=== PATIENT | female | born 1990 | race Caucasian/White ===

== ENCOUNTER 2017-10-16 16:08 | Emergency (ER) | payer MEDICAID, OTHER ==
[2017-10-16] MEDS ORDERED: traMADol TAB* 50 MG PO ONE (17:36)
[2017-10-16 17:46] VITALS: BP 126/74
--- NOTE | 2017-10-17 07:49 | ED ---
Throat Pain/Nasal Congestion - HPI Summary HPI Summary: Patient is a 27-year-old female presenting to the ED with right-sided dental pain 2 days. She endorses pain to the upper and lower tooth over #6 and #28. She has had extensive work done on her teeth in the past with several fillings and root canals. Endorses a past history of dental infections. She endorses pain which is intermittent and worse with eating over the past 2 days. She is tearful on arrival. She has been taking ibuprofen and Tylenol with minimal relief. Also has been taking Anbesol. Denies any swelling. - History of Current Complaint Chief Complaint: EDDentalPain Time Seen by Provider: 10/16/17 16:39 Hx Obtained From: Patient Onset/Duration: Sudden Onset Severity: Moderate Associated Signs And Symptoms: Negative: Dysphagia, Drooling, Wheezing, Sinus Discomfort, Nasal Discharge - Epiglottits Risk Factors Epiglottis Risk Factors: Negative - Allergies/Home Medications Allergies/Adverse Reactions: Allergies Allergy/AdvReac Type Severity Reaction Status Date / Time amoxicillin Allergy Hives/Diff. Verified 10/16/17 16:43 Breathing/I tching clarithromycin Allergy Nausea And Verified 10/16/17 16:43 Vomiting codeine Allergy Hives Verified 10/16/17 16:43 Penicillins Allergy Hives/Diff. Verified 10/16/17 16:43 Breathing/I tching PMH/Surg Hx/FS Hx/Imm Hx Previously Healthy: Yes Endocrine/Hematology History: Reports: Hx Unexplained Bleeding - PT HAS IRREG. BLEEDING SINCE CHILDBIRTH-QOD - improved since nexplanon Denies: Hx Anticoagulant Therapy, Hx Blood Disorders, Hx Blood Transfusions, Hx Bone Marrow Disease, Hx Diabetes, Hx Systemic Lupus Erythematosus, Hx Sickle Cell Disease, Hx Thyroid Disease, Hx Anemia, Other Endocrine/Hematological Disorders Cardiovascular History: Denies: Hx Hypertension Respiratory History: Reports: Hx Asthma - Uses Albuterol MDI PRN, last use "a long time ago" Denies: Hx Chronic Obstructive Pulmonary Disease (COPD), Other Respiratory Problems/Disorders GI History: Denies: Hx Ulcer, Other GI Disorders Sensory History: Denies: Hx Cataracts, Hx Contacts or Glasses, Hx Eye Injury, Hx Eye Prosthesis, Hx Glaucoma, Hx Macular Degeneration, Hx Vision Problem, Hx Deafness , Hx Hearing Aid, Hx Hearing Problem, Other Sensory Impairments Opthamlomology History: Denies: Hx Cataracts, Hx Contacts or Glasses, Hx Eye Injury, Hx Eye Prosthesis, Hx Glaucoma, Hx Macular Degeneration, Hx Vision Problem, Other Sensory Impairments Neurological History: Reports: Hx Headaches, Other Neuro Impairments/Disorders - PT REPORTS SHE HAS YET TO 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 Psychiatric History: Reports: Hx Anxiety, Hx Depression - bipolar disorder on Zoloft, Hx Post Traumatic Stress Disorder, Hx Inpatient Treatment, Hx Community Mental Health Tx - [facility] - [facility], Hx Bipolar Disorder Denies: Hx Attention Deficit Hyperactivity Disorder, Hx Eating Disorder, Hx Panic Disorder, Hx Schizophrenia, Hx Suicide Attempt, Hx of Violent Episodes Against Others, Hx Substance Abuse, Other Psychiatric Issues/Disorders - Immunization History Immunizations Up to Date: Yes Infectious Disease History: No Infectious Disease History: Reports: Hx of Known/Suspected MRSA - buttocks, Hx Shingles Denies: Hx Hepatitis, Hx Human Immunodeficiency Virus (HIV), History Other Infectious Disease, Traveled Outside the [place] in Last 30 Days - Family History Known Family History: Positive: Other - Positive for bipolar disorder, depression Negative: Hypertension - Social History Occupation: Employed Full-time Lives: With Family Alcohol Use: None Hx Substance Use: No Substance Use Type: Reports: None Hx Tobacco Use: No Smoking Status (MU): Never Smoked Tobacco Type: Cigarettes Have You Smoked in the Last Year: No Review of Systems Constitutional: Negative Negative: Fever, Chills, Fatigue, Skin Diaphoresis Positive: Dental Pain Negative: Palpitations, Chest Pain Negative: Shortness Of Breath, Cough Genitourinary: Negative Positive: no symptoms reported, see HPI Negative: Arthralgia, Myalgia Skin: Negative Neurological: Negative All Other Systems Reviewed And Are Negative: Yes Physical Exam Triage Information Reviewed: Yes Vital Signs On Initial Exam: Initial Vitals Temp Pulse Resp BP Pulse Ox 97.0 F 75 16 126/84 97 10/16/17 16:10 10/16/17 16:10 10/16/17 16:10 10/16/17 16:10 10/16/17 16:10 Vital Signs Reviewed: Yes Appearance: Positive: Well-Appearing, Well-Nourished Skin: Positive: Warm - all, Skin Color Reflects Adequate Perfusion Head/Face: Positive: Normal Head/Face Inspection Eyes: Positive: EOMI, JANELL, Conjunctiva Clear Dental: Positive: Percussion Tenderness @ - #6 and #28 tooth pain, Gross Decay/ Caries @ Respiratory/Lung Sounds: Positive: Clear to Auscultation, Breath Sounds Present Cardiovascular: Positive: RRR, Pulses are Symmetrical in both Upper and Lower Extremities Musculoskeletal: Positive: Normal, Strength/ROM Intact Neurological: Positive: Speech Normal Psychiatric: Positive: Normal, Affect/Mood Appropriate AVPU Assessment: Alert Diagnostics - Vital Signs Vital Signs Temp Pulse Resp BP Pulse Ox 10/16/17 17:45 98.1 F 73 16 126/74 99 10/16/17 16:10 97.0 F 75 16 126/84 97 - Laboratory Lab Statement: Any lab studies that have been ordered have been reviewed, and results considered in the medical decision making process. EENT Course/Dx - Course Course Of Treatment: Physical examination, there is no obvious signs of abscess. No erythema or drainage. Pain on light palpation to the right maxillary sinus over tooth #6, no pain on palpation to the lower chin. She has several fillings, dental caries and gingivitis throughout. She has not seen a dentist in several years, however will follow-up next week. She is given clindamycin as she is allergic to penicillin for a possible dental infection. She understands return cautions will follow-up with her dentist. She is given tramadol 50 mg in the ED and is encouraged ibuprofen and Anbesol at home. - Differential Diagnoses Differential Diagnoses: Dental Caries - Diagnoses Provider Diagnoses: Pain, dental Discharge - Sign-Out/Discharge Documenting (check all that apply): Patient Departure - Discharge Plan Condition: Stable Disposition: HOME Prescriptions: Clindamycin Cap(NF) [Clindamycin Cap 300 mg Cap(NF)] 300 mg PO Q6H #20 cap Patient Education Materials: Toothache (ED) Referrals: Paco Duran MD [Primary Care Provider] - Additional Instructions: Ibuprofen 800 mg 3 times daily Continue with Anbesol Clindamycin 4 times daily 5 days Please follow-up with dentist as soon as possible - Billing Disposition and Condition Condition: STABLE Disposition: Home
== END 2017-10-16 17:45 | disposition home or self-care (01) ==
LOC: ED 16:08
DX: K08.89 Other specified disorders of teeth and supporting structures (principal); K02.9 Dental caries, unspecified; K05.10 Chronic gingivitis, plaque induced; Z88.3 Allergy status to other anti-infective agents; Z88.5 Allergy status to narcotic agent; Z88.0 Allergy status to penicillin
CPT/HCPCS: 99282; A9270-GY

== ENCOUNTER → 2017-12-16 08:52 | Emergency (ER) | payer MEDICAID ==
[~2017-12-16 08:52] MED LIST: Dexamethasone TAB* 4 MG PO ONE; Magic Mouth Was-BEN/MAAL/LIDO SWISH SWAL ONE; Naproxen TAB* 250 MG PO ONE
--- OUTSIDE RECORDS SUMMARY | 2017-12-16 09:40 | XMS REPORT | Continuity of Care Document ---
:1990 External Reference #:[id number] Author Name Ty Gonzalez MD Address [address] [place] [address] Care Team Providers Name Role Phone [facility] Primary Care Physician Unavailable Payers Type Date Identification Numbers Payment Provider Subscriber Effective: Policy Number: [id number] [facility] Brianne Adames 2010 PayID: [id number] [address] [address] [place] [address] Expires: 2010 Policy Number: [id number] Medicaid Mom's Brianne Adames PayID: [id number] [address] [place] [address] Advance Directives Description No Information Available Problems Date Description Provider Status Onset: 04/20/2014 Bipolar disorder Ashlyn Ramirez NP Active Onset: 09/29/2011 Asthma without status asthmaticus Tory Solorio CNM Resolved Resolved: 01/16/2015 Onset: 09/29/2011 Depressive disorder Tory Solorio CNM Resolved Resolved: 01/16/2015 Onset: 09/29/2011 Anxiety state Tory Solorio CNM Resolved Resolved: 01/16/2015 Onset: 04/20/2014 Multigravida Ashlyn Ramirez NP Resolved Resolved: 01/16/2015 Family History Date Family Member(s) Problem(s) Comments Father Heart Disease Father Diabetes Mother Depression Mother Diabetes Mother Epilepsy Mother Asthma Mother Bipolar Disorder Number of Children 4 First Son A&W First Daughter A&W Second Daughter A&W Third Daughter A&W Number of Siblings Siblings: 4 First Brother A&W Second Brother A&W First Sister A&W Second Sister Unknown Paternal Grandfather Unknown Paternal Grandmother due to Lung Cancer () Maternal Grandfather Unknown Maternal Grandmother Unknown Social History Type Date Description Comments Sex Unknown Education Highest level of education completed is 9th grade Marital Status Patient is Living Situation Lives with son and daughters Occupation Homemaker Cigarette Use Never smoked cigarettes Alcohol Currently consumes alcohol Tobacco Use Start: Unknown Patient has never smoked Drug Use Denies drug use Smoking Status Reviewed: 12/13/17 Patient has never smoked Daily Caffeine Does not consume caffeine Exercise Type/Frequency Exercises regularly Current Seat Belt/Car Seat Always uses a seat belt Currently Active The patient is currently sexually active Contraceptive Methods Nexplanon STD's Has chlamydia RICKEY: 01/01/2012 Estimated Date of Based on LMP Delivery Allergies, Adverse Reactions, Alerts Date Description Reaction Status Severity Comments 09/25/2009 Penicillin Active 10/19/2012 Amoxicillin Active Medications Medication Date Status Form Strength Qnty SIG Indications Ordering Provider Nexplanon 12/13 Active Implant 68mg Phaelon /2017 MD Lisa Zoloft Active Tablets 200mg 30tab 1 by mouth Unknown /0000 s every day Nexplanon 01/16 Hx Implant 68mg Marvin A. /2014 Bria Martinez M.D. 11/24 Terazol 3 08/22 Hx Cream 0.8% 1tube use 1 applicator Liane - every night at , CNM 01/15 bedtime x nights Norgestim-Eth 12/21 Hx Tablets 0.18/0.21 28tab 1 by mouth Dvora Estrad 5/0.25 s every day Justin, Triphasic - mg-35 mcg M.DFrancisco J 04/20 Depo-Provera 07/26 Hx Suspension 150mg/ml 1unit 1 V25.49 Francia /2013 s intramuscular Jump, - every 3months ANP-C 02/20 One 07/26 Hx Tablets 27-0.8mg 90tab 1 by mouth V24.2 Francia Daily Opr s every day Jump, Generic - ANP-C Covered By 09/18 Ins. Sertraline 06/01 Hx Tablets 50mg 30tab take 02/16 Loly HCL s tablet daily Cam, - for first M 04/20 week, then tablet by mouth daily Keflex 02/16 Hx Capsules 500mg 28cap take 2 caps po s bid x 7 days Tyler, - [facility] 04/17 Macrobid 01/16 Hx Capsules 100mg 14cap take 1 po bid Cadence s x 7 days. Neil - finish rx 01/30 Terconazole 01/10 Hx Cream 0.8% 20g use 1 vaginal applicator qhs Neli - x 3 days 01/15 Claritin 11/11 Hx Tablets 5mg 30tab Take 1 PO bid [facility] Dispers s Bria Trejo MD 01/09 Zofran Odt 11/11 Hx Tablets 4mg 30tab take 1 sl q8 Dispers s prn nausea Bria Trejo MD 01/09 Tylenol 11/01 Hx Tablets 325mg 30tab Take 1-2 PO Cadence s prn Headache Bria Trejo MD 09/24 Plus 10/19 Hx Tablets 7-0.4-100 90tab 1 po qd [place] Dha mg s please use any Bria Trejo generic 07/26 vitamin covered by ins. with dha 100-300 mg. thanks Estradiol 04/19 Hx Tablets 0.5mg 30tab 1 po qd Marvin AFrancisco J s Bria Martinez M.D. 10/18 Ibuprofen 03/03 Hx Tablets 600mg 30tab take 1 po q6 x Marvin AFrancisco J s 48 hrs Bria Martinez M.D. 10/18 Dha 09/28 Hx Capsules 300mg 100ca 1 daily by Loly ps mouth Tutu, - [facility] 03/01 Calcium 600 09/28 Hx Tablets 600mg 100ta 1 po twice a day Tutu, - [facility] 10/18 Diflucan 09/28 Hx Tablets 150mg 2tabs 1 by mouth, Loly repeat in 72 Cam, - hrs if [facility] 11/03 symptoms resolved Haloperidol 12/16 Hx Tablets 1mg #2 po at hs Cadence Polina Centeno, - CNM 09/28 /Foli 09/25 Hx Tablets 90tab 1 po qd Cadence c /2009 s Polina Centeno, - CNM 10/05 Benadryl Hx Unknown /0000 - 09/25 Medications Administered in Office Medication Date Status Form Strength Qnty SIG Indications Ordering Provider Depo Provera 07/26 Administered Injection Francia /2013 TRACY Linda-C Injection 03/03 Administered Injection Ashlyn Medroxyprogesteron /2012 YOGI Ramirez e Acetate /Depo Provera/Contracept ion Immunizations CPT Code Status Date Vaccine Lot # [id number] Given 01/27/2013 Influenza Virus Vaccine Split Virus Use For Individual 3Yr Older [id number] Given 01/17/2010 Influenza Virus Vaccine 3Years Or Older Vital Signs Date Vital Result Comment 12/13/2017 2:03pm BP Systolic 122 mmHg BP Diastolic 82 mmHg Height 64.5 inches 5'4.50" Weight 249.00 lb BMI (Body Mass Index) 42.1 kg/m2 Last Menstrual Period 8059510 4 Parity 4 04/03/2015 1:20pm BP Systolic 122 mmHg BP Diastolic 66 mmHg Height 64 inches 5'4" Weight 185.00 lb BMI (Body Mass Index) 31.8 kg/m2 4 Parity 4 01/16/2015 1:33pm BP Systolic 116 mmHg BP Diastolic 66 mmHg Height 64 inches 5'4" Weight 178.00 lb BMI (Body Mass Index) 30.6 kg/m2 Last Menstrual Period 4720442 4 Parity 4 12/13/2014 12:35pm BP Systolic 104 mmHg BP Diastolic 62 mmHg Height 64 inches 5'4" Weight 176.00 lb BMI (Body Mass Index) 30.2 kg/m2 Last Menstrual Period 9792500 4 Parity 4 04/20/2014 10:59am BP Systolic 104 mmHg BP Diastolic 68 mmHg Height 64 inches 5'4" Weight 168.00 lb BMI (Body Mass Index) 28.8 kg/m2 Last Menstrual Period 1076622 4 Parity 3 12/21/2013 8:35am BP Systolic 116 mmHg BP Diastolic 82 mmHg Height 64 inches 5'4" Weight 176.00 lb BMI (Body Mass Index) 30.2 kg/m2 Last Menstrual Period 8943791 09/27/2013 1:55pm BP Systolic 122 mmHg BP Diastolic 76 mmHg Height 64 inches 5'4" Weight 172.00 lb BMI (Body Mass Index) 29.5 kg/m2 3 Parity 3 07/26/2013 12:41pm BP Systolic 122 mmHg BP Diastolic 80 mmHg Height 64 inches 5'4" Weight 176.00 lb BMI (Body Mass Index) 30.2 kg/m2 Last Menstrual Period 3854305 3 Parity 3 10/19/2012 10:02am BP Systolic 104 mmHg BP Diastolic 66 mmHg Height 64 inches 5'4" Weight 170.00 lb BMI (Body Mass Index) 29.2 kg/m2 3 Parity 2 03/03/2012 10:24am BP Systolic 120 mmHg BP Diastolic 80 mmHg Height 64 inches 5'4" Weight 171.00 lb BMI (Body Mass Index) 29.3 kg/m2 Last Menstrual Period 2471229 2 Parity 2 02/23/2012 1:03pm BP Systolic 100 mmHg BP Diastolic 64 mmHg Height 64 inches 5'4" Weight 171.00 lb BMI (Body Mass Index) 29.3 kg/m2 02/03/2012 10:39am BP Systolic 108 mmHg BP Diastolic 68 mmHg Height 64 inches 5'4" Weight 179.00 lb BMI (Body Mass Index) 30.7 kg/m2 Last Menstrual Period 7891794 del 01/25/12 2 Parity 2 09/29/2011 1:39pm BP Systolic 102 mmHg BP Diastolic 60 mmHg Height 64 inches 5'4" Weight 166.00 lb BMI (Body Mass Index) 28.5 kg/m2 Last Menstrual Period 4083348 2 Parity 1 05/27/2010 1:59pm BP Systolic 118 mmHg BP Diastolic 70 mmHg Weight 190.00 lb 09/25/2009 1:10pm BP Systolic 98 mmHg BP Diastolic 60 mmHg Height 64 inches 5'4" Weight 170.00 lb BMI (Body Mass Index) 29.2 kg/m2 Last Menstrual Period July 0 Results Test Date Facility Test Result H/L Range Note Laboratory test 10/18/2014 [facility] Amnisure No Membrane [address] [place] [address] Rupt <SEE [phone] NOTE> Laboratory test 09/27/2014 [facility] Genital For SEE RESULT 2 [place] [address] GRP B Strep BELOW [phone] Only Urinalysis 09/20/2014 [facility] [place] [address] [phone] Urine Appearance Cloudy Urine Specific [place] 1.021 1.010-1.030 Urine pH 6.0 5-9 Urine Urobilinogen Negative Negative Urine Ketones Negative Negative Urine Protein Negative Negative Urine Leukocytes Negative Negative Urine Blood Negative Negative Urine Nitrite Negative Negative Urine Bilirubin Negative Negative Urine Glucose Negative Negative Laboratory test 08/22/2014 [facility] Gardnerella/Yeast: SEE RESULT [address] [place] [address] Vaginal Dna BELOW [phone] Trichomonas: Vaginal Dna Probe SEE RESULT BELOW 4 Laboratory test 08/01/2014 [facility] Glucose 1 HR 94 mg/dL 70-160 [place] [address] Post Prandial [phone] CBC With No Diff 08/01/2014 [facility] White Blood 14.2 High 4.8-10.8 [place] [address] Count 10^3/uL [phone] Red Blood Count 4.18 10^6/uL 4.0-5.4 Hemoglobin 11.2 g/dL Low 12.0-16.0 Hematocrit 36 % 35-47 Mean Corpuscular Volume 85 fL 80-97 Mean Corpuscular Hemoglobin 27 pg 27-31 Mean Corpuscular HGB Conc 31 g/dL 31-36 Red Cell Distribution Width 15 % 10.5-15 Platelet Count 227 10^3/uL 150-450 Mean Platelet Volume 7 um3 Low 7.4-10.4 PNL No 06/14/2014 [facility] Rubella Screen Immune IU/ mL Immune 5 Urine [place], [place] [address]67179 [phone] Hemoglobin A1c 4.7 % Less than 6.0 6 Hepatitis B Surface Antigen Nonreactive Nonreactive 7 RPR 06/14/2014 [facility] Syphilis IgG TNP Nonreactive [place], [place] [address] [phone] RPR Nonreactive Nonreactive RPR Titer TNP Pediatric/Maternal YES CBC With No 06/14/2014 [facility] White Blood 8.1 10^3/uL 4.8 -10.8 [place] [address] Count [phone] Red Blood Count 4.17 10^6/uL 4.0-5.4 Hemoglobin 11.8 g/dL Low 12.0-16.0 Hematocrit 36 % 35-47 Mean Corpuscular Volume 85 fL 80-97 Mean Corpuscular Hemoglobin 28 pg 27-31 Mean Corpuscular HGB Conc 33 g/dL 31-36 Red Cell Distribution Width 14 % 10.5-15 Platelet Count 222 10^3/uL 150-450 Mean Platelet Volume 7 um3 Low 7.4-10.4 Type And Screen 06/14/2014 [facility] [place] [address] Type [phone] Antibody Screen NEGATIVE HIV 1/2 AB 06/14/2014 [facility] HIV 1 2 Nonreactive Nonreactive 8 [place] [address] Antibody [phone] GC/Chlamydia 04/20/2014 [facility] Chlamydia Negative [place] [address] trachomatis [phone] Rna Neisseria gonorrhoeae (GC) Rna Negative Negative 9 Urine Culture And 04/20/2014 [facility] Urine Culture (SEE NOTE ) 10 [place] [address] [phone] Laboratory test 12/21/2013 [facility] Beta HCG < 0.60 0.0-5 11 [place] [address] Quantitative IU/mL .0 [phone] Free T4 0.78 ng/mL 0.61-1.12 TSH (Thyroid Stimulating Horm) 0.62 IU/mL 0.34-5.60 CBC With No 12/21/2013 [facility] White Blood 9.6 10^3/uL 4.8 -10.8 [place] [address] Count [phone] Red Blood Count 4.55 10^6/uL 4.0-5.4 Hemoglobin 13.0 g/dL 12.0-16.0 Hematocrit 39 % 35-47 Mean Corpuscular Volume 86 fL 80-97 Mean Corpuscular Hemoglobin 29 pg 27-31 Mean Corpuscular HGB Conc 33 g/dL 31-36 Red Cell Distribution Width 14 % 10.5-15 Platelet Count 174 10^3/uL 150-450 Mean Platelet Volume 8 um3 7.4-10.4 Laboratory test 12/21/2013 [facility] Cytology RUN DATE: 12 finding [place] [address] 12/22/ [phone] <SEE NOTE> GC/Chlamydia Dna 12/21/2013 [facility] GC/Chlamydia (SEE NOTE) 13 [address] [place] [address] Rna [phone] Urine Culture And 02/28/2013 [facility] Urine Culture (SEE NOTE ) [address] [place] [address] [phone] Hemoglobinopathy 02/28/2013 [facility] Erythrocyte 3.92 3.80 Evaluation Count Mill/uL -5.1 0 Hemoglobin 11.9 g/dL 11.7-15.5 Hematocrit 36.5 % 35.0-45.0 MCV 93.1 FL 80.0-100.0 MCH 30.4 pg 27.0-33.0 RDW 14.3 % 11.0-15.0 Hemoglobin A 97.3 % >96.0 Hemoglobin F 0.0 % <2.0 Hemoglobin A2 2.7 % 1.8-3.5 Interpretation see note 15 Laboratory test 02/28/2013 [facility] Glucose 1 HR 77 mg/dL 70-[address] [place] [address] Post Prandial [phone] CBC With No Diff 02/28/2013 [facility] White Blood 10.3 4.8- 10.8 [place] [address] Count 10^3/uL [phone] Red Blood Count 3.97 10^6/uL Low 4.0-5.4 Hemoglobin 12.0 g/dL 12.0-16.0 Hematocrit 36 % 35-47 Mean Corpuscular Volume 91 fL 80-97 Mean Corpuscular Hemoglobin 30 pg 27-31 Mean Corpuscular HGB Conc 33 g/dL 31-36 Red Cell Distribution Width 14 % 10.5-15 Platelet Count 196 10^3/uL 150-450 Mean Platelet Volume 7 um3 Low 7.4-10.4 Urine Culture And 02/13/2013 [facility] Urine Culture (SEE NOTE ) 16 [place] [address] [phone] GC/Chlamydia Dna 02/13/2013 [facility] GC/Chlamydia Rna (SEE NOTE) 17 [place] [address] [phone] Urine Culture And 01/10/2013 [facility] Urine Culture (SEE NOTE ) 18 [place] [address] [phone] Sequential 11/29/2012 [facility] Interpretation SEE BELOW 19 Integreated SCRN 2 [place] Risk For Ontd <1:5000 Age Risk Down Syndrome 1:1100 JB Down Syndrome Risk <1:5000 <1:270 JB Trisomy 18 Risk <1:5000 <1:100 Calculated Gestational Age 15.7 20 Afp,Serum 19.6 NG/ML Afp Mom 0.60 21 HCG,Serum 25.6 IU/mL HCG Mom 0.94 Estriol,Free 0.38 NG/ML Estriol Mom 0.77 Inhibin A,Dimeric 135 pg/mL Inhibin A Mom 0.80 Dione-A 680 NG/ML Dione-A Mom 1.22 NT Mom 1.18 22 Referring Physician Name MARVIN MARTINEZ Referring Physician Phone [phone] Referring Physician Npi [id number] Specimen # From Part 1 [id number] Date Of 1990 Collection Date 11/29/2012 Maternal Weight 170 LBS Est'd Date Of Delivery 05/16/2013 Nuchal Translucency 1.5 MM [place] Rump Length 53 MM Ultrasound Date 11/01/2012 Nasal Bone NG Mother's Ethnic Origin Insulin Depend Diabetic NO Repeat Specimen NO Number Of Fetuses 1 HX Of Neural Tube Defects NO Twin B Nasal Bone NG Sequential Integrated SCRN 1 [place] 11/01/2012 [facility] Interpretation SEE BELOW 23 Age Risk Down Syndrome 1:840 JB Down Syndrome Risk IN PROCESS <1:50 JB Trisomy 18 Risk IN PROCESS <1:100 Calculated Gestational Age 11.7 24 Dione-A 680 NG/ML Dione-A Mom 1.22 HCG,Serum 52.0 IU/mL HCG Mom 0.92 NT Mom 1.18 25 Referring Physician Name CHAGO Referring Physician Phone [phone] Referring Physician Npi [id number] Date Of 1990 Collection Date 11/01/2012 Maternal Weight 170 LBS Est'd Date Of Delivery 05/16/2013 RICKEY Determined By U/S Mother's Ethnic Origin Number Of Fetuses 1 Insulin Depend Diabetic NO Repeat Specimen NO HX Of Neural Tube Defects NO Brief History (NTD) N/A Prev Down Synd NO Donor Egg NO Donor Age:Egg Retrieval N/A Ultrasound Date Research Anthropologist's Name Dalton R <SEE NOTE> 26 NTQR Research Anthropologist Id# [id number] NTQR Location Id# [id number] NTQR Reading Phys Id# [id number] FMF Research Anthropologist Id# N/A [place] Rump Length 53 MM Nuchal Translucency 1.5 MM Nasal Bone N/A If Twins N/A Twin B CRL NA MM Twin B NT NA MM Twin B Nasal Bone NA Type And Screen 11/01/2012 [facility] [place] [address] Type [phone] Antibody Screen NEGATIVE HIV 1/2 AB 11/01/2012 [facility] HIV 1 2 Nonreactive Nonreactive 27 [place] [address] Antibody [phone] CBC With No 11/01/2012 [facility] White Blood 9.6 10^3/uL 4.8 -10.8 [place] [address] Count [phone] Red Blood Count 4.31 10^6/uL 4.0-5.4 Hemoglobin 13.3 g/dL 12.0-16.0 Hematocrit 38 % 35-47 Mean Corpuscular Volume 89 fL 80-97 Mean Corpuscular Hemoglobin 31 pg 27-31 Mean Corpuscular HGB Conc 35 g/dL 31-36 Red Cell Distribution Width 14 % 10.5-15 Platelet Count 215 10^3/uL 150-450 Mean Platelet Volume 8 um3 7.4-10.4 RPR 11/01/2012 [facility] Syphilis [place] [address] [phone] RPR Nonreactive Nonreactive RPR Titer TNP Pediatric/Maternal YES PNL No 11/01/2012 [facility] Rubella Screen [place] [address] [phone] Hemoglobin A1c 4.8 % Less than 6.0 28 Hepatitis B Surface Antigen Nonreactive Nonreactive 29 Cystic Fibrosis Carrier ([place]) 11/01/2012 [facility] Reported Ethnicity see note 30 CF Result see note 31 Interpretation see note 32 Mutations/Polymorphisms see note 33 Method see note 34 Reviewer see note 35 GC / Chlamydia 10/19/2012 [facility] GC NEGATIVE 36 Chlamydia NEGATIVE Urine Culture And 10/19/2012 [facility] Urine Culture (SEE NOTE ) 37 [place] [address] [phone] CBC With No Diff 03/03/2012 [facility] White Blood 10.5 4.8- 10 [place] [address] Count 10^3/uL .8 [phone] Red Blood Count 4.18 10^6/uL 4.0-5.4 Hemoglobin 12.7 g/dL 12.0-16.0 Hematocrit 38 % 35-47 Mean Corpuscular Volume 91 fL 80-97 Mean Corpuscular Hemoglobin 30 pg 27-31 Mean Corpuscular HGB Conc 33 g/dL 31-36 Red Cell Distribution Width 15 % 10.5-15 Platelet Count 192 10^3/uL 150-450 Mean Platelet Volume 8 um3 7.4-10.4 Laboratory test 03/03/2012 [facility] TSH (Thyroid 1.24 0.34- 5.60 [place] [address] Stimulating miu/mL [phone] Horm) CBC With No 01/24/2012 [facility] White Blood 8.5 4.8-10.8 [place] [address] Count 10^3/uL [phone] Red Blood Count 4.17 10^6/uL 4.0-5.4 Hemoglobin 12.6 g/dL 12.0-16.0 Hematocrit 37 % 35-47 Mean Corpuscular Volume 88 fL 80-97 Mean Corpuscular Hemoglobin 30 pg 27-31 Mean Corpuscular HGB Conc 34 g/dL 31-36 Red Cell Distribution Width 14 % 10.5-15 Platelet Count 114 10^3/uL Low 150-450 Mean Platelet Volume 7 um3 Low 7.4-10.4 Laboratory test 12/25/2011 [facility] Group B Strep (SEE NOTE) 38 [place] [address] Cult/Sensitivity [phone] Glucose 2HR 10/30/2011 [facility] Fasting Glucose 80 mg/dL 70 -1 39 Tolerance (CMC) [place] [address] 10 [phone] 1HR Glucose 118 mg/dL 40 2HR Glucose 96 mg/dL 41 CBC Auto Diff 10/30/2011 [facility] White Blood 11.9 CUMM High 4.8-10.8 [place] [address] Count [phone] Red Cell Count 3.93 CUMM Low 4.2-5.4 Hemoglobin 12.3 g/dL 12.0-16.0 Hematocrit 36 % 35-47 Mean Corpuscular Volume 91 um3 79-97 Mean Corpuscular Hemoglob 31 pg 27-31 Mean Corpuscular HGB Cone 34 g/dL 32-36 Redcell Distribution WDTH 14 % 10.5-15 Platelet Count 192 CUMM 150-450 Mean Platelet Volume 7.9 um3 7.4-10.4 Gran % 74.9 % 38-83 Lymph % 18.6 % Low 20-45 Mononuclear % 5.4 % 1-9 Eosinophil % 0.7 % 0-6 Basophil % 0.4 % 0-2 Abs Lymphs 2.2 1.0-4.8 Abs Mononuclear 0.6 0-0.8 Absolute Neutrophil Count 8.9 High 1.5-7.7 Abs Eosinophils 0.1 0-0.6 Abs Basophils 0 0-0.2 Drug Abuse 10/28/2011 [facility] Urine Ampetamines Negative ng/ mL () 42 20 [place] [address] [phone] Urine Barbiturates Negative ng/mL () 43 Urine Benzodiazepines Negative ng/mL () 44 Urine Cocaine Negative ng/mL () 45 Urine Methadone Negative ng/mL () 46 Urine Opiates Negative ng/mL () 47 Urine Phencyclidine Negative ng/mL Cutoff: 25 Urine Propoxyphene Negative ng/mL () 48 Urine Tetrahydrocannabinol Negative ng/mL Cutoff: 20 49 Urine Opiates Screen Negative () 50 Urine Codeine By GC/MS Negative ng/mL () 51 Urine Hydrocodone By GC/MS Negative ng/mL () 52 Urine Hydromophone By GC/MS Negative ng/mL () 53 Urine Morphine By GC/MS Negative ng/mL () 54 Urine Oxycodone By GC/MS Negative ng/mL () 55 Urine Opiates Interpretation Negative. () 56 GC/Chlamydia 09/29/2011 [facility] M [address] [place] [address] <SEE NOTE> [phone] Urine Culture & 09/29/2011 [facility] M [address] [place] [address] <SEE NOTE> [phone] Laboratory test 05/22/2010 [facility] Amnisure MEMBRANE RUPTURE [address] [place] [address] [phone] Urine Culture & 05/05/2010 [facility] Urine NG [address] [place] [address] Culture [phone] Sensitivi Laboratory test 04/18/2010 [facility] Genital For NG2 [address] [place] [address] GRP B Strep [phone] Only Urine Culture & 09/25/2009 [facility] Urine NF1 [address] [place] [address] Culture [phone] Sensitivi GC/Chlamydia 09/25/2009 [facility] GC By NEGATIVE Negative 63 [place] [address] Aptima [phone] CHL By Aptima NEGATIVE Negative 64 Type And Screen 09/25/2009 [facility] [place] [address] Type [phone] Antibody Screen NEGATIVE Vad 09/25/2009 [facility] Vad Final NONREACTIVE Nonreactive 65 [place] [address] [phone] CBC With 09/25/2009 [facility] White 8.9 CUMM 4.8-10.8 [place] [address] Blood [phone] Count Red Cell Count 4.53 CUMM 4.2-5.4 Hemoglobin 13.3 g/dL 12.0-16.0 Hematocrit 40 % 35-47 Mean Corpuscular Volume 88 um3 79-97 Mean Corpuscular Hemoglob 29 pg 27-31 Mean Corpuscular HGB Cone 33 g/dL 32-36 Redcell Distribution WDTH 15 % 10.5-15 Platelet Count 243 CUMM 150-450 Mean Platelet Volume 7.1 um3 Low 7.4-10.4 Gran % 68.5 % 38-83 Lymph % 24.3 % Low 25-47 Mononuclear % 5.4 % 1-9 Eosinophil % 1.5 % 0-6 Basophil % 0.3 % 0-2 Abs Lymphs 2.2 1.0-4.8 Abs Mononuclear 0.5 0-0.8 Absolute Neutrophil Count 6.1 1.5-7.7 Abs Eosinophils 0.1 0-0.6 Abs Basophils 0 0-0.2 Prental PNL 09/25/2009 [facility] Syphilis IgG NON-REACTIVE Nonreactive 66 [place] [address] [phone] Hepatitis B Surface Ag Nonreactive Nonreactive Rubella Screen IMMUNE Immune 1 No Membrane Rupture 2 SEE RESULT BELOW Name: BRIANNE ADAMES : [address]: Marvin Martinez MD Acct: [id number] Unit: [id number] AGE: 24 Location: [facility] Re09/27/14 SEX: F Status: REG REF SPEC: [id number] SAGE: 09/27/14-[address] [facility] [address]: Marvin Martinez MD REQ: [id number] RECD: 09/27/14 STATUS: COMP _ SOURCE: CER/VAG/RE SPDESC: ORDERED: Grp B Strp Scrn QUERIES: Is Patient Penicillin Allergic? Y Is patient penicillin allergic and/or sensitivities needed? Y Provider Requisition # C77#[id number]_ Procedure Result Verified Site Group B Strep Culture Screen Final 09/29/14- 1032 ML Group B Strep Screen Negative * ML - MAIN LAB ([facility]) . END OF REPORT * ML=Testing performed at Main Lab DEPARTMENT OF PATHOLOGY, [address] [place] [address] Jacob Long M.D. Director [facility] # [id number] 3 SEE RESULT BELOW Name: BRIANNE ADAMES : [address]: Aniya DHALIWAL Acct: [id number] Unit: [id number] AGE: 24 Location: [facility] Re08/22/14 SEX: F Status: REG REF SPEC: [id number] SAGE: 08/22/14-[address] [facility] [address]: Aniya Rob [facility] REQ: [id number] RECD: 08/22/14 STATUS: RES _ SOURCE: VAGINAL SPDESC: ORDERED: Reina,Yeast DNA, Trich DNA Procedure Result Verified Site Gardnerella/Yeast: Vaginal DNA Final 08/22/14- 1349 ML Organism 1 POSITIVE CHELLY Organism 2 Negative Gardnerella The presence of G. vaginalis, although suggestive, is not diagnostic for bacterial vaginosis. Results should be interpreted in conjuction with other clinical and laboratory data available. Women with vaginal discharge should be evaluated for risk factors of cervicitis and pelvic inflammatory disease, toxic shock syndrome (S.aureus), and if present, evaluated for organisms not included in this assay such as N. gonorrhoeae, C. trachomatis, Mobiluncus, Mycoplasma and/or Prevotella. Mixed infections may occur. The performance of this test on patient specimens collected during or immediately after antimicrobial therapy is unknown. The presence or absence of Chelly species, or G. vaginalis cannot be used as a test for therapeutic success or failure. Trichomonas: Vaginal DNA Probe PENDING * ML - MAIN LAB ([facility]) . END OF REPORT * ML=Testing performed at Main Lab DEPARTMENT OF PATHOLOGY, [address] [place] [address] Jacob Long M.D. Director [facility] # [id number] 4 SEE RESULT BELOW Name: BRIANNE ADAMES : [address]: Aniya Rob CNM Acct: [id number] Unit: [id number] AGE: 24 Location: [facility] Re08/22/14 SEX: F Status: REG REF SPEC: [id number] SAGE: 08/22/[address]: Aniya Rob CNM REQ: [id number] RECD: 08/22/14 STATUS: COMP _ SOURCE: VAGINAL SPDESC: ORDERED: Reina,Yeast DNA, Trich DNA Procedure Result Verified Site Gardnerella/Yeast: Vaginal DNA Final 08/22/14- 1349 ML Organism 1 POSITIVE CHELLY Organism 2 Negative Gardnerella The presence of G. vaginalis, although suggestive, is not diagnostic for bacterial vaginosis. Results should be interpreted in conjuction with other clinical and laboratory data available. Women with vaginal discharge should be evaluated for risk factors of cervicitis and pelvic inflammatory disease, toxic shock syndrome (S.aureus), and if present, evaluated for organisms not included in this assay such as N. gonorrhoeae, C. trachomatis, Mobiluncus, Mycoplasma and/or Prevotella. Mixed infections may occur. The performance of this test on patient specimens collected during or immediately after antimicrobial therapy is unknown. The presence or absence of Chelly species, or G. vaginalis cannot be used as a test for therapeutic success or failure. Trichomonas: Vaginal DNA Probe Final 08/22/14- 1351 ML Organism 1 Negative Trichomonas CONTINUED ON NEXT PAGE * ML=Testing performed at Main Lab DEPARTMENT OF PATHOLOGY, [address] [place] [address] Jacob Long M.D. Director [facility] # [id number] Patient: BRIANNE ADAMES [id number] (Continued) Specimen: [id number] Collected: 08/22/14 Received: 08/22/14 (Continued) Procedure Result Verified Site Trichomonas: Vaginal DNA Probe Final (continued) 08/22/14 4940 The presence or absence of T. vaginalis cannot be used as a test for therapeutic success or failure. * ML - MAIN LAB ([facility]) . END OF REPORT * ML=Testing performed at Main Lab DEPARTMENT OF PATHOLOGY, [address] [place] [address] Jacob Long M.D. Director [facility] # [id number] 5 SCREENING NOS 6 Therapeutic target for the treatment of diabetes Mellitus patients is <7% HBA1C, and in selective patients <6.0%.Please refer to [place] Diabetes Association Diabetic care guidelines for further information. 7 YES 8 It is recognized that currently available assays for the detection of antibodies to HIV-1 and/or HIV-2 may not detect all infected individuals. HIV antibodies may be undetectable in some stages of the infection and in some clinical conditions. The performance of this assay has not been established for populations of infants or children. Assayed by Chemiluminescence Microparticle Immunoassay on the Siemens Advia Centaur CP. Values obtained with different methods or kits cannot be used interchangeably.The diagnostic specificity of the ADVIA Centaur 1/O/2 Enhanced assay in the low risk population was 99.90% (6052/6058) with a 95% confidence interval of 99.78 to 99.96%. 9 Female urine specimens have been self-validated by [facility] and have been granted conditional assay approval by [facility]. 10 RUN DATE: 04/22/14 [facility] LAB LIVE PAGE 1 RUN TIME: [address] [place] [address] Specimen Inquiry Name: BRIANNE ADAMES : [address]: Ashlyn Ramirez NP Acct: [id number] Unit: [id number] AGE: 23 Location: [facility] Re/06/15 SEX: F Status: REG REF SPEC: [id number] SAGE: 04/20/141143 SUBM DR: Ashlyn Ramirez NP REQ: [id number] RECD: 04/20/14 STATUS: COMP _ SOURCE: URINE SPDESC: ORDERED: Urine Culture QUERIES: Provider Requisition # [id number] Procedure Result Verified Site Urine Culture Final 04/22/14- 1018 L No Growth Day 2 (<1,000 CFU/mL) END OF REPORT * ML=Testing performed at Main Lab DEPARTMENT OF PATHOLOGY, [address] [place] [address] Jacob Long M.D. Director [facility] # [id number] 11 <5.0 Negative 5.0 - 25.0 Indeterminate >25.0 Positive 12 RUN DATE: 12/22/13 [facility] LAB LIVE PAGE 1 RUN TIME: 1259 [address] [place], [place] [address] Specimen Inquiry Name: BRIANNE ADAMES : [address]: Thea Anderson MD Acct: [id number] Unit: [id number] AGE: 23 Location: [facility] Re12/21/13 SEX: F Status: REG REF SPEC: [id number] SAGE: 12/21/[address] [facility] [address]: Thea Anderson MD REQ: [id number] RECD: 12/21/13 STATUS: SOUT _ ORDERED: IMAGE ANALYSIS FINAL DIAGNOSIS Negative for Intraepithelial lesion or Malignancy A. Ectocervical/Endocervical Specimen Adequacy: Satisfactory of evaluation Transformation zone component identified Patient Information: HPV: Thin Layer Pap Test only (NO HPV TESTING) Actual Specimen Date: 12/21/13 Last Menstrual Date: 12/14/13 Signed (signature on file) MIS Muhammad (ASCP) 12/22 1259 This Pap test was evaluated with the assistance of the Design LED ProductsPrep Test Imaging System. Due to cytologic findings at the legal executive microscope, comprehensive manual rescreening by a Subcontracts Manager may be required. The Pap Smear is a screening test designed to aid in the detection of premalignant and malignant conditions of the uterine cervix. It is not a diagnostic procedure and should not be used as the sole means of detecting cervical cancer. Both false- positive and false- negative reports do occur. Depending on your risk status, a Pap smear shoudl be obtained and evaluated every 1-3 years. END OF REPORT * ML=Testing performed at Main Lab DEPARTMENT OF PATHOLOGY, [facility] [employer] [place] [address] Jacob Long M.D. Director [facility] # [id number] 13 RUN DATE: 12/22/13 [facility] LAB LIVE PAGE 1 RUN TIME: 141 [facility] [employer] [place] [address] Specimen Inquiry Name: BRIANNE ADAMES : [address]: Thea Anderson MD Acct: [id number] Unit: [id number] AGE: 23 Location: [facility] Re12/21/13 SEX: F Status: REG REF SPEC: [id number] SAGE: 12/21/[address]: Thea Anderson MD REQ: [id number] RECD: 12/21/13 STATUS: COMP _ SOURCE: ENDOCERVIX SPDESC: ORDERED: GC/Chlam RNA QUERIES: Medent Number [id number] Procedure Result Verified Site Chlamydia Trachomatis RNA Final 12/22/13- 1412 ML POSITIVE for CHLAMYDIA TRACHOMATIS rRNA Limitations of the Procedure: The Aptima Combo 2 Assay is not intended for the evaluation of suspected sexual abuse or for other medico-legal indications. For those patients for whom a false positive result may have adverse psychosocial impact, the [facility] recommends retesting by a method using an alternate technology. Therapeutic failure or success cannot be determined with the Aptima Combo 2 Assay since nucleic acid may persist following appropriate antimicrobial therapy. Results from the Aptima Combo 2 Assay should be interpreted in conjunction with other laboratory and clinical data available to the clinican. Performance characteristics for detecting C. trachomatis and N. gonorrhoeae are derived from high prevalence populations. Positive results in low prevalence populations should be interpreted carefully with the understanding that the likelihood of a false positive may be higher than a true positive. CONTINUED ON NEXT PAGE * ML=Testing performed at Main Lab DEPARTMENT OF PATHOLOGY, [facility] [employer] [place], [place] [address] Jacob Long M.D. Director [facility] # [id number] RUN DATE: 12/22/13 [facility] LAB LIVE PAGE 2 RUN TIME: 141 [facility] [employer] [place], [place] [address] Specimen Inquiry Patient: BRIANNE ADAMES [id number] (Continued) Specimen: [id number] Collected: 12/21/13 Received: 12/21/13-1209 (Continued) Procedure Result Verified Site Chlamydia Trachomatis RNA Final (continued) 12/22/13- 141 GC (N. gonorrhoeae) RNA Final 12/22/13- 1412 ML NEGATIVE for Neisseria gonorrhoeae rRNA A negative result does not preclude the presence of a C. trachomatis or N. gonorrhoeae infection because results are dependent on adequate specimen collection, absence of inhibitors, and sufficient rRNA to be detected. Test results may be affected by improper specimen collection, improper storage, technical error, or specimen mixup. Limitations of the Procedure: The Aptima Combo 2 Assay is not intended for the evaluation of suspected sexual abuse or for other medico-legal indications. For those patients for whom a false positive result may have adverse psychosocial impact, the CDC recommends retesting by a method using an alternate technology. Therapeutic failure or success cannot be determined with the Aptima Combo 2 Assay since nucleic acid may persist following appropriate antimicrobial therapy. Results from the Aptima Combo 2 Assay should be interpreted in conjunction with other laboratory and clinical data available to the clinican. Performance characteristics for detecting C. trachomatis and N. gonorrhoeae are derived from high prevalence populations. Positive results in low prevalence populations should be interpreted carefully with the understanding that the likelihood of a false positive may be higher than a true positive. END OF REPORT * ML=Testing performed at Main Lab DEPARTMENT OF PATHOLOGY, [facility] [employer] [place], [place] [address] Jacob Long M.D. Director [facility] # [id number] 14 RUN DATE: 03/02/13 [facility] LAB LIVE PAGE 1 RUN TIME: 1112 [facility] [employer] [place], [place] [address] Specimen Inquiry Name: BRIANNE ADAMES : [address]: Marla Scott CNM Acct: [id number] Unit: [id number] AGE: 22 Location: [facility] Re02/28/13 SEX: F Status: REG REF SPEC: [id number] SAGE: 02/28/13-[address]: Marla Scott CNM REQ: [id number] RECD: 02/28/137332 STATUS: COMP _ SOURCE: URINE SPDESC: ORDERED: Urine Culture QUERIES: Medent Number [id number] Procedure Result Verified Site Urine Culture Final 03/02/13- 1112 ML No Growth Day 2 (<1,000 CFU/mL) END OF REPORT * ML=Testing performed at Main Lab DEPARTMENT OF PATHOLOGY, [facility] [employer] [place], [place] [address] Jacob Long M.D. Director [facility] Permit #[id number] 15 NORMAL PATTERN By high-performance liquid chromatography (HPLC), there is a normal pattern of hemoglobins and normal levels of HbA2 and HbF are present. No variant hemoglobins are observed. This is consistent with A/A phenotype. If iron deficiency coexists with beta thalassemia trait HbA2 may be in the normal range. Rare variant hemoglobins have been known to co-elute with hemoglobin A by high-performance liquid chroma- tography. If clinically indicated, Thalassemia and Hemoglobinopathy comprehensive is available (Test code 92821T[23127]). 16 RUN DATE: 02/15/13 [facility] LAB LIVE PAGE 1 RUN TIME: [address] [place] [address] Specimen Inquiry Name: BRIANNE ADAMES : [address]: Ning DHALIWAL Acct: [id number] Unit: [id number] AGE: 22 Location: [facility] Re02/13/13 SEX: F Status: REG REF SPEC: [id number] SAGE: 02/13/13-[address]: Ning Cam [facility] REQ: [id number] RECD: 02/13/13 STATUS: COMP _ SOURCE: URINE SPDESC: ORDERED: Urine Culture QUERIES: Medent Number [id number] Procedure Result Verified Site Urine Culture Final 02/15/13- 1305 ML Organism 1 STREP GROUP B Fence Count 25-50,000 (Moderate) CFU/ML Organism 2 NORMAL ALEXX Fence Count 25-50,000 (Moderate) CFU/ML Susceptibility testing of penicillins and other B-lactams approved by FDA for treatment of Streptococcus pyogenes (Group A Strep) and Streptococcus agalactiae (Group B Strep) is not necessary for clinical purposes and need not be done routinely, since as with vancomycin, resistant strains have not been recognized. (CLSI J313-X15;p.66) Positive isolates will be saved for one week. Please call the Microbiology Laboratory if further susceptibility testing is needed. END OF REPORT * ML=Testing performed at Main Lab DEPARTMENT OF PATHOLOGY, [facility] [employer] [place], [place] [address] Jacob Long M.D. Director [facility] Permit #[id number] 17 RUN DATE: 02/14/13 [facility] LAB LIVE PAGE 1 RUN TIME: [address] [place] [address] Specimen Inquiry Name: BRIANNE ADAMES : [address]: Ning Cam [facility] Acct: [id number] Unit: [id number] AGE: 22 Location: [facility] Re02/13/13 SEX: F Status: REG REF SPEC: [id number] SAGE: 02/13/131407 SUBM DR: Ning Cam [facility] REQ: [id number] RECD: 02/13/13 STATUS: COMP _ SOURCE: URINE SPDESC: ORDERED: GC/Chlam RNA QUERIES: Medent Number [id number] Procedure Result Verified Site Chlamydia Trachomatis RNA Final 02/14/13- 1210 ML NEGATIVE for Chlamydia trachomatis rRNA GC (N. gonorrhoeae) RNA Final 02/14/13- 1214 ML NEGATIVE for Neisseria gonorrhoeae rRNA A negative result does not preclude the presence of a C. trachomatis or N. gonorrhoeae infection because results are dependent on adequate specimen collection, absence of inhibitors, and sufficient rRNA to be detected. Test results may be affected by improper specimen collection, improper storage, technical error, or specimen mixup. Limitations of the Procedure: The AptSpaceCurve Combo 2 Assay is not intended for the evaluation of suspected sexual abuse or for other medico-legal indications. For those patients for whom a false positive result may have adverse psychosocial impact, the [facility] recommends retesting by a method using an alternate technology. Therapeutic failure or success cannot be determined with the Aptima Combo 2 Assay since nucleic acid may persist following appropriate antimicrobial therapy. Results from the Aptima Combo 2 Assay should be interpreted in conjunction with other laboratory and clinical data available to the clinican. CONTINUED ON NEXT PAGE * ML=Testing performed at Main Lab DEPARTMENT OF PATHOLOGY, [facility] [employer] [place], [place] [address] Jacob Long M.D. Director [facility] Permit #[id number] RUN DATE: 02/14/13 [facility] LAB LIVE PAGE 2 RUN TIME: 1214 [facility] [employer] [place], [place] [address] Specimen Inquiry Patient: BRIANNE ADAMES [id number] (Continued) Specimen: [id number] Collected: 02/13/13-1406 Received: 02/13/13-840 (Continued) Procedure Result Verified Site GC (N. gonorrhoeae) RNA Final (continued) 02/14/13- 1214 Performance characteristics for detecting C. trachomatis and N. gonorrhoeae are derived from high prevalence populations. Positive results in low prevalence populations should be interpreted carefully with the understanding that the likelihood of a false positive may be higher than a true positive. END OF REPORT * ML=Testing performed at Main Lab DEPARTMENT OF PATHOLOGY, [facility] [employer] [place], [place] [address] Jacob Long M.D. Director [facility] Permit #[id number] 18 RUN DATE: 01/17/13 [facility] LAB LIVE PAGE 1 RUN TIME: 7560 [facility] [employer] [place], [place] [address] Specimen Inquiry Name: BRIANNE ADAMES : [address]: Ashlyn Ramirez NP Acct: [id number] Unit: [id number] AGE: 22 Location: [facility] Re01/10/13 SEX: F Status: REG REF SPEC: [id number] SAGE: 01/10/13-[address] [facility] [address]: Ashlyn Ramirez NP REQ: [id number] RECD: 01/10/13 STATUS: COMP _ SOURCE: URINE SPDESC: ORDERED: Urine Culture QUERIES: Medent Number [id number] Procedure Result Verified Site Urine Culture Final 01/17/13- 0851 ML Organism 1 STREP AGALACTIAE - (GROUP B) Fence Count 50-75,000 (Many) CFU/ML 1. STREP AGALACTIAE - (GROUP B) M.I.C. RX --------- ------ Ampicillin <=0.25 S Penicillin <=0.12 S Levofloxacin 1 S Linezolid 2 S * Quinupristin/Dalfopristin <=0.25 S Tetracycline >=16 R Tigecycline <=0.12 S Vancomycin <=0.5 S Imipenem-Deduced S * Ampicillin/Sulbactam-Deduced S Cefazolin-Deduced S * These antibiotics are not available in the [facility] Formulary Contact the Microbiology Department for any additional antibiotic reporting. END OF REPORT * ML=Testing performed at Main Lab DEPARTMENT OF PATHOLOGY, [address] [place] [address] Jacob Long M.D. Director [facility] Permit #[id number] 19 SCREEN NEGATIVE FOR OPEN NTD, DOWN SYNDROME AND TRISOMY 18. NT WAS USED IN THE RISK CALCULATIONS. 20 [place] rump length (CRL) was used to calculate gestational age. RICKEY, if provided, was not used for gestational age dating. 21 Reference Range: <2.50 IDD <1.90 TWINS <4.00 TWINS IDD <3.50 TRIPLETS <4.50 22 The Sequential Integrated Screen combines DIONE-A and hCG with or without a nuchal translucency measurement in the first trimester with AFP, unconjugated estriol, intact hCG and Inhibin A in the second trimester. This provides a useful screening test for detection of open neural tube defects, Down syndrome and Trisomy 18. It should be noted that normal results can never guarantee the of a normal baby and that 2 to 3 percent of newborns have some type of physical or mental defect, many of which are undetectable through any known diagnostic technique. Interpretation reviewed by: Aurelio Mcclelland, Ph.D., [facility] This is a screening test, not a diagnostic test. This risk assessment is based on demographic data provided by the ordering physician. Please notify the laboratory promptly if any data are incorrect. If you have questions concerning this report: For clinical consultation, call ; For technical questions, call ext [phone]; For recalculations, fax to . This test was developed and its performance characteristics have been determined by [facility]. Performance characteristics refer to the analytical performance of the test. 23 This patient's risk does not exceed the first trimester cut-off for Down syndrome or trisomy 18. The integrated screen calculation is awaiting the second trimester sample. NT WAS USED IN THE RISK CALCULATIONS. Thank you for submitting this patient's Part 1 specimen. These first trimester values will be incorporated with the second trimester values as part of the integrated testing process. Please submit the Part 2 specimen between 11/24/2012-01/18/2013 (15.0 and 22.9 weeks gestation) with 11/24/2012-12/07/2012 (15.0 - 16.9 weeks gestation) being optimal. When submitting Part 2, please include the following Specimen # from Part 1: [id number] 24 [place] rump length (CRL) was used to calculate gestational age. RICKEY, if provided, was not used for gestational age dating. 25 Interpretation reviewed by: Aurelio Mcclelland, Ph.D., [facility] This is a screening test, not a diagnostic test. This risk assessment is based on demographic data provided by the ordering physician. Please notify the laboratory promptly if any data are incorrect. If you have questions concerning this report: For clinical consultation, call ; For technical questions, call ext [phone]; For recalculations, fax to . This test was developed and its performance characteristics have been determined by [facility]. Performance characteristics refer to the analytical performance of the test. 26 Dalton Lopez 27 It is recognized that currently available assays for the detection of antibodies to HIV-1 and/or HIV-2 may not detect all infected individuals. HIV antibodies may be undetectable in some stages of the infection and in some clinical conditions. The performance of this assay has not been established for populations of infants or children. Assayed by Chemiluminescence Microparticle Immunoassay on the Siemens Advia Centaur CP. Values obtained with different methods or kits cannot be used interchangeably.The diagnostic specificity of the ADVIA Centaur 1/O/2 Enhanced assay in the low risk population was 99.90% (6052/6058) with a 95% confidence interval of 99.78 to 99.96%. 28 Therapeutic target for the treatment of diabetes Mellitus patients is <7% HBA1C, and in selective patients <6.0%.Please refer to [place] Diabetes Association Diabetic care guidelines for further information. 29 YES 30 31 NEGATIVE; NONE OF THE MUTATIONS LISTED BELOW WERE DETECTED 32 This result does not rule out the presence of a mutation or a diagnosis of cystic fibrosis disease (CF).* The risk for mutations that cause CF other than the ones tested depends greatly on family history, clinical presentation, and ethnicity. Chance of Having a CF Mutation Ethnic Group Detection Before After Negative Rate Test Result Ashkenazi Gnosticist 94% 1 in 24 1 in 400 Non- 88% 1 in 25 1 in 208 -[place]olan 72% 1 in 46 1 in 164 -[place]olan 65% 1 in 65 1 in 186 -[place]olan 49% 1 in 94 1 in 184 Other insufficient data available For assistance with interpretation of these results, please contact your local [facility] genetic counselor or call [employer] ([phone]). 33 G85E (c.254 G>A) 3120+1 G>A(c.2988+1G>A) R334W (c.1000 C>T) 394delTT (c.262_263delTT) V520F (c.1558 G>T) 1717-1 G>A(c.1585-1 G>A) R553X (c.1657 C>T) 1898+1 G>A(c.1766+1 G>A) F2997V(c.3846 G>A) 3659delC (c.3437delC) R347H (c.1040 G>A) 621+1 G>T (c.489+1 G>T) R560T (c.1679 G>C) 3905insT (c.3773_3774insT) E4370Y(c.3484 C>T) 2183AA>G (c.2051_2052delAAinsG) T3026N(c.3909 C>G) 711+1 G>T (c.579+1 G>T) R117H (c.350 G>A) U789vdc (c.1519_1521delATC) R347P (c.1040 G>T) 2184delA (c.2052delA) G542X (c.1624 G>T) 3876delA (c.3744delA) A455E (c.1364 C>A) 1078delT (c.948delT) S549N (c.1647 G>A) I452pbg (c.1521_1523delCTT) S549R (c.1646 A>C) 2789+5 G>A(c.2657+5 G>A) G551D (c.1652 G>A) 3849+10kb C>T (c.9350-7601 C>T) This assay detects thirty-two mutations, including the twenty-three core mutations recommended by the [place] [employer] (ACMG) and the [place] [employer] Ob[employer]etric[employer] Gynec[employer] (ACOG) for population-based CF carrier screening. Testing for the intron 8 5T polymorphism is performed only when the R117H mutation is detected. Testing for the I506V and I507V polymorphisms is performed only when a homozygous Delta F508 or Delta I507 mutation is detected. In addition to the ACMG/ACOG panel, this assay detects nine additional mutations. While these mutations are rare in the [place] population, the scientific and medical literature indicates that these mutations are not benign polymorphisms. 34 The mutations listed above are detected by an oligonucleotide ligation assay (LUIS FELIPE) after multiplex- polymerase chain reaction (PCR) amplification of specific CF gene regions. Fluorescent allele-specific reaction products are detected by capillary electrophoresis. Since genetic variation and other factors can affect the accuracy of direct mutation testing, the results of this testing should always be interpreted in light of clinical and familial data. 35 Raman Prieto, Ph.D., [facility] Director, Molecular Genetics The performance characteristics of this assay have been determined by [facility] [employer]. Performance characteristics refer to the analytical performance of the test. For more information on this test, go to http://education.iPixCel.Glowforth/faq/cfscreen 36 [facility] [address] [place] [address], [address] [place] [address] GC / CHLAMYDIA REPORT Name: Brianne Adames : 1990 (Age: 22) Sex : F Location: [facility] Med. Rec. # [id number] Date Collected: 10/19/2012 Billing #: [id number] Date Received: 10/20/2012 Requisition # [id number] Physician(s): NILDA BRYSON Source of Specimen: Endocervical swab Results: Neisseria gonorrhoeae NEGATIVE Chlamydia trachomatis NEGATIVE Comment: This analysis was performed using second generation nucleic acid amplification testing (NAAT). Reported: 10/21/[address] Tiffanie Celia [facility] ICD-9 Codes: V74.5 37 RUN DATE: 10/21/12 [facility] LAB LIVE PAGE 1 RUN TIME: [address] [place] [address] Specimen Inquiry Name: BRIANNE ADAMES : [address]: Ashlyn Ramirez NP Acct: [id number] Unit: [id number] AGE: 22 Location: [facility] Re10/19/12 SEX: F Status: REG REF SPEC: [id number] SAGE: 10/19/12-[address] [facility] [address]: Ashlyn Ramirez NP REQ: [id number] RECD: 10/19/12-1538 STATUS: COMP _ SOURCE: URINE SPDESC: ORDERED: Urine Culture QUERIES: Medent Number [id number] Procedure Result Verified Site Urine Culture Final 10/21/12- 931 ML Organism 1 NORMAL ALEXX Fence Count 75-100,000 (Many) CFU/ML END OF REPORT * ML=Testing performed at Main Lab DEPARTMENT OF PATHOLOGY, [facility] [employer] [place], [place] [address] Jacob Long M.D. Director [facility] Permit #[id number] RUN DATE: 12/28/11 [facility] LAB LIVE PAGE 1 RUN TIME: [address] [place] [id number] Specimen Inquiry Name: BRIANNE ADAMES : [address]: Ashlyn Ramirez NP Acct: [id number] Unit: [id number] AGE: 21 Location: [facility] Re12/25/11 SEX: F Status: REG REF SPEC: [id number] SAGE: 12/25/11-[address]: Ashlyn Ramirez NP REQ: [id number] RECD: 12/25/11 STATUS: COMP _ SOURCE: CX/REC SPDESC: ORDERED: Cedrick Mcmahon C/S QUERIES: Medent Number [id number] Procedure Result Verified Site Group B Strep Cult/Sensitivity Final 12/28/11- 0916 ML Organism 1 STREP AGALACTIAE - (GROUP B) 1. STREP AGALACTIAE - (GROUP B) M.I.C. RX --------- ------ Ampicillin <=0.25 S Penicillin <=0.12 S Clindamycin 1 R Levofloxacin 1 S Linezolid 1 S * Quinupristin/Dalfopristin <=0.25 S Tetracycline >=16 R Tigecycline <=0.12 S Vancomycin <=0.5 S Imipenem-Deduced S Ampicillin/Sulbactam-Deduced S Cefazolin-Deduced S * These antibiotics are not available in the [facility] Formulary Contact the Microbiology Department for any additional antibiotic reporting. END OF REPORT * ML=Testing performed at Main Lab DEPARTMENT OF PATHOLOGY, [address] [place] [address] Jacob Long M.D. Director [facility] Permit #[id number] 2HR GTT (PREG) FAST SERUM FASTING GLUCOSE from [id number] 2HR GTT (PREG ) 1HR SERUM 1HR GLUCOSE from [id number]. 2HR GTT (PREG) 2HR SERUM 2HR GLUCOSE from [id number]. 40 REFERENCE RANGE: 20-50 MG/DL ABOVE FASTING 41 REFERENCE RANGE: 5-15 MG/DL ABOVE FASTING 42 -- REFERENCE VALUE -- Cutoff: 500 43 -- REFERENCE VALUE -- Cutoff: 200 44 -- REFERENCE VALUE -- Cutoff: 200 45 -- REFERENCE VALUE -- Cutoff: 150 46 -- REFERENCE VALUE -- Cutoff: 300 47 -- REFERENCE VALUE -- Cutoff: 300 48 -- REFERENCE VALUE -- Cutoff: 300 49 This report is intended for use in clinical monitoring or management of patients. It is not intended for use in employment-related testing. Test Performed by: [address] [address] [employer] Representatives: Richard Rodgers III, M.D. 50 -- REFERENCE VALUE -- Cutoff: 300 51 -- REFERENCE VALUE -- Cutoff: 100 52 -- REFERENCE VALUE -- Cutoff: 100 53 -- REFERENCE VALUE -- Cutoff: 100 54 -- REFERENCE VALUE -- Cutoff: 100 55 -- REFERENCE VALUE -- Cutoff: 100 56 This report is intended for use in clinical monitoring and management of patients. It is not intended for use in employment-related testing. Test Performed by: [facility] - [address] [address] [employer] Representatives: Richard Rodgers III, M.D. 57 RUN DATE: 10/01/11 [facility] NMI LIVE PAGE 1 RUN TIME: 2038 Specimen Inquiry RUN USER: INTERFACE Name: BRIANNE ADAMES Status: REG REF Re09/29/11 Age/Sex: 21/F Unit#: [id number] Location: [facility] : [birth year] SPEC #: [id number] SAGE: 09/29/11-1432 STATUS: COMP REQ #: [id number] RECD: 09/30/11-[address] [facility] [address]: Tory Solorio CNM SOURCE: ENDOCERVIX ENTR: 09/30/11-[address] [facility] [address]: PATRICK: ORDERED: GC/CHL APTIMA QUERIES: MEDENT REQUISITION # [id number] ACT WKST: GCC 10/01/11 #1 Procedure Result Verified Site > CHLAMYDIA TRACHOMATIS RNA Final 10/01/11- 2038 ML NEGATIVE FOR CHLAMYDIA TRACHOMATIS rRNA A negative result does not preclude the presence of a C.trachomatis or N.gonorrhoeae infection because results are dependent on adequate specimen collection, absence of inhibitors, and sufficient rRNA to be detected. Test results may be affected by improper specimen collection, improper specimen storage, technical error, or specimen mixup. Limitations of the Procedure: The Aptima Combo 2 Assay is not intended for the evaluation of suspected sexual abuse or for other medico-legal indications. For those patients for whom a false positive result may have adverse psychosocial impact, the [facility] recommends retesting by a method using an alternate technology. Therapeutic failure or success cannot be determined with the Aptima Combo 2 Assay since nucleic acid may persist following appropriate antimicrobial therapy. Results from the APTIMA Combo 2 Assay should be interpreted in conjunction with other laboraotry and clinical data available to the clinician. Performance characteristics for detecting C. trachomatis and N. gonorrhoeae are derived from high prevalence populations. Positive results in low prevalence populations should be interpreted carefully with the understanding that the likelihood of a false positive may be higher than a true positive. DEPARTMENT OF PATHOLOGY, [address] [place] [address] [facility] Permit #[id number] Paloma Badillo M.D. Certified Optician RUN DATE: 10/01/11 [facility] NMI LIVE PAGE 2 RUN TIME: 2038 Specimen Inquiry RUN USER: INTERFACE Name: BRINANE ADAMES Status: REG REF Re09/29/11 Age/Sex: 21/F Unit#: [id number] Location: [facility]. : 92 -- -- CONTINU ED Procedure Result Verified Site > GC (N. GONORRHOEAE) RNA Final 10/01/11- 2038 ML NEGATIVE FOR NEISSERIA GONORRHOEAE rRNA A negative result does not preclude the presence of a C.trachomatis or N.gonorrhoeae infection because results are dependent on adequate specimen collection, absence of inhibitors, and sufficient rRNA to be detected. Test results may be affected by improper specimen collection, improper specimen storage, technical error, or specimen mixup. Limitations of the Procedure: The Aptima Combo 2 Assay is not intended for the evaluation of suspected sexual abuse or for other medico-legal indications. For those patients for whom a false positive result may have adverse psychosocial impact, the [facility] recommends retesting by a method using an alternate technology. Therapeutic failure or success cannot be determined with the Aptima Combo 2 Assay since nucleic acid may persist following appropriate antimicrobial therapy. Results from the APTIMA Combo 2 Assay should be interpreted in conjunction with other laboraotry and clinical data available to the clinician. Performance characteristics for detecting C. trachomatis and N. gonorrhoeae are derived from high prevalence populations. Positive results in low prevalence populations should be interpreted carefully with the understanding that the likelihood of a false positive may be higher than a true positive. [facility] Permit #[id number] [facility] [employer] [place] [address] DEPARTMENT OF PATHOLOGY, [address] [place] [address] [place] Permit #[id number] Jacob Long M.D. Director July Connelly M.D. Certified Optician 58 RUN DATE: 10/01/11 [facility] NMI LIVE PAGE 1 RUN TIME: 946 Specimen Inquiry RUN USER: INTERFACE Name: BRIANNE ADAMES Status: REG REF Re09/29/11 Age/Sex: 21/F Unit#: [id number] Location: [facility] : [birth year] SPEC #: [id number] SAGE: 09/29/11-4901 STATUS: RONY REQ #: [id number] RECD: 09/29/11-[address] [facility] [address]: Osmin NICOLASTory E. SOURCE: URINE ENTR: 09/29/11-[address] [facility] [address]: RUT: ORDERED: URINE C S COMMENTS: SPECIMEN DESCRIPTION: URINE, CLEAN CATCH QUERIES: [facility] MEDENT REQUISITION # [id number] ACT WKST: UR 10/01/11 #2 Procedure Result Verified Site > URINE CULTURE SENSITIVI Final 10/01/11- 946 ML SPECIMEN CONTAINS NORMAL URETHRAL OR PERINEAL ALEXX AND DOES NOT SUGGEST URINARY TRACT INFECTION ML - [facility] Permit #[id number] [address] [place], [place] [id number] DEPARTMENT OF PATHOLOGY, [address] [place] [address] [facility] Permit #[id number] Jacob Long M.D. Director July Connelly M.D. Certified Optician 59 MEMBRANE RUPTURE 60 FINAL: NO GROWTH DAY 2 (<1,000 CFU/mL) 61 FINAL: NEGATIVE FOR GROUP B STREPTOCOCCUS 62 SPECIMEN CONTAINS NORMAL URETHRAL OR PERINEAL ALEXX AND DOES NOT SUGGEST URINARY TRACT INFECTION 63 . A negative result does not preclude the presence of a C.trachomatis or N.gonorrhoeae infection because results are dependent on adequate specimen collection, absence of inhibitors, and sufficient rRNA to be detected. Test results may be affected by improper specimen collection, improper specimen storage, technical error, or specimen mixup. . 64 . A negative result does not preclude the presence of a C.trachomatis or N.gonorrhoeae infection because results are dependent on adequate specimen collection, absence of inhibitors, and sufficient rRNA to be detected. Test results may be affected by improper specimen collection, improper specimen storage, technical error, or specimen mixup. . 65 FINAL INTERPRETATION: No HIV antibody is detected. . This information has been disclosed to you from confidential records which are protected by [place] law. State law prohibits you from making further disclosure of this information without the specific written consent of the person to whom it pertains, or as otherwise permitted by law. Any unauthorized further disclosure in violation of state law may result in a fine or group home sentence or both. General authorization for the release of medical or other information is not, except in limited circumstances set forth in Part 63, Title 10, of [facility], sufficient authorization for further disclosure. Disclosure of confidential HIV information that occurs as the result of a general authorization for the release of medical or other information will be in violation of the state law and may result in a fine or a group home sentence. . 66 Warning: A positive result is not useful for establishing a diagnosis of syphilis. In most situations, such a result may reflect a prior treated infection; a negative result can exclude a diagnosis of syphilis except for incubating or early primary disease. Procedures Date Code Description Status 12/13/2017 42130 Removal With Reinsertion Non-Biodegradable Drug Delivery Completed Implant 01/16/2015 35842 Insertion, Non-Biodegradable Drug Delivery Implant Completed 10/26/2014 29786 Obstetric Care Routine Completed 09/20/2014 98068 Non-Stress Test Completed 08/01/2014 47412 Echography Uterus Follow-Up Or Repeat Completed 06/14/2014 31803 Echography Uterus Complete Completed 04/20/2014 74349 Nuchal Translucency Ultrasound /First Gestation Completed 07/26/2013 62263 Injection Intramuscular Or Subcutaneous Completed 05/19/2013 36256 Obstetric Care Routine Completed 12/27/2012 62623 Echography Uterus Complete Completed 11/01/2012 16453 Nuchal Translucency Ultrasound /First Gestation Completed 03/03/2012 76110 Injection Intramuscular Or Subcutaneous Completed 01/25/2012 19569 Obstetric Care Routine Completed 01/24/2012 86849 Obstetric Care Routine Completed 09/25/2011 32974 Echography Uterus Complete Completed 05/22/2010 66556 Obstetric Care Routine Completed 05/15/2010 75704 Echography Uterus Limited Completed 05/15/2010 74421 Non-Stress Test Completed 01/08/2010 37700 Echography Uterus Complete Completed 12/01/2009 69613 Non-Stress Test Completed 10/04/2009 95803 OB Ultrasound First Trimester Completed Encounters Type Date Location Provider Dx Diagnosis Office Visit 04/03/2015 [facility] Ashlyn Ramirez NP Z30.9 Encounter for 1:30p contraceptive management, unspecified Office Visit 09/20/2014 [facility] Office Marvin Martinez, 644.03 Premature Labor 1:26p M.D. Threatened Antepartum Cond Or Compl Office Visit 12/21/2013 [facility] Thea Anderson, 626.2 Menstruation Excessive 9:00a M.D. Or Frequent V25.8 Contraceptive Management Spec Other V76.2 Screening Malignant Neoplasm Cervix Office Visit 09/27/2013 2:30p [facility] Ashlyn Ramirez, [employer] 789.9 Abdomen & Pelvis Symptoms Other V25.8 Contraceptive Management Spec Other Office Visit 03/03/2012 10:30a [facility] Ashlyn Ramirez, 626.2 Menstruation [employer]OK[employer] Excessive Or Frequent V25.8 Contraceptive Management Spec Other V25.49 Contraceptive Other Method Surveillance Office Visit 02/03/2012 11:00a [facility] Ashlyn Ramirez, V25.8 Contraceptive [employer]OK[employer] Management Spec Other Office Visit 01/29/2012 9:18a Non - Surgical Ty Gonzalez, 780.60 Fever , [facility]specified Hospital 789.09 Pain Abdominal Other Spec Site Office Visit 12/01/2009 9:40a Delivery Lucy Sifuentes, [facility] 789.9 Abdomen & Pelvis Symptoms Other Office Visit 11/18/2009 1:40p [facility] Marvin Martinez, 478.9 Upper Resp Tract M.DFrancisco J Disease Other & Unspec V22.1 Supervison Of Normal Other Plan of Treatment Future Appointment(s):02/16/2018 2:00 pm - Ty Gonzalez MD at [facility]
[2017-12-16 11:12] VITALS: BP 106/72
--- NOTE | 2017-12-16 16:35 | ED ---
Throat Pain/Nasal Congestion - HPI Summary HPI Summary: Patient is a 29-year-old female who presents emergency department for sore throat and fever times several days. Patient denies past medical history. She has 2 small children at home. She increased pain with swallowing and eating. She also notes cough without SOB/ She denies vomiting, diarrhea, abdominal pain , urinary symptoms. Symptoms are mild in severity. Patient notes significant pain with swallowing but states she has been drinking plenty of water and has been urinating normally. - History of Current Complaint Chief Complaint: EDThroatPain Time Seen by Provider: 12/16/17 09:28 Hx Obtained From: Patient - Allergies/Home Medications Allergies/Adverse Reactions: Allergies Allergy/AdvReac Type Severity Reaction Status Date / Time amoxicillin Allergy Hives/Diff. Verified 12/16/17 09:14 Breathing/I tching clarithromycin Allergy Nausea And Verified 12/16/17 09:14 Vomiting codeine Allergy Hives Verified 12/16/17 09:14 Penicillins Allergy Hives/Diff. Verified 12/16/17 09:14 Breathing/I tching PMH/Surg Hx/FS Hx/Imm Hx Previously Healthy: Yes Endocrine/Hematology History: Reports: Hx Unexplained Bleeding - PT HAS IRREG. BLEEDING SINCE CHILDBIRTH-QOD - improved since nexplanon Denies: Hx Anticoagulant Therapy, Hx Blood Disorders, Hx Blood Transfusions, Hx Bone Marrow Disease, Hx Diabetes, Hx Systemic Lupus Erythematosus, Hx Sickle Cell Disease, Hx Thyroid Disease, Hx Anemia, Other Endocrine/Hematological Disorders Cardiovascular History: Denies: Hx Hypertension Respiratory History: Reports: Hx Asthma - Uses Albuterol MDI PRN, last use "a long time ago" Denies: Hx Chronic Obstructive Pulmonary Disease (COPD), Other Respiratory Problems/Disorders GI History: Denies: Hx Ulcer, Other GI Disorders Sensory History: Denies: Hx Cataracts, Hx Contacts or Glasses, Hx Eye Injury, Hx Eye Prosthesis, Hx Glaucoma, Hx Macular Degeneration, Hx Vision Problem, Hx Deafness , Hx Hearing Aid, Hx Hearing Problem, Other Sensory Impairments Opthamlomology History: Denies: Hx Cataracts, Hx Contacts or Glasses, Hx Eye Injury, Hx Eye Prosthesis, Hx Glaucoma, Hx Macular Degeneration, Hx Vision Problem, Other Sensory Impairments Neurological History: Reports: Hx Headaches, Other Neuro Impairments/Disorders - PT REPORTS SHE HAS YET TO 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 Psychiatric History: Reports: Hx Anxiety, Hx Depression - bipolar disorder on Zoloft, Hx Post Traumatic Stress Disorder, Hx Inpatient Treatment, Hx Community Mental Health Tx - Net[facility] Med[facility] - [facility], Hx Bipolar Disorder Denies: Hx Attention Deficit Hyperactivity Disorder, Hx Eating Disorder, Hx Panic Disorder, Hx Schizophrenia, Hx Suicide Attempt, Hx of Violent Episodes Against Others, Hx Substance Abuse, Other Psychiatric Issues/Disorders Infectious Disease History: No Infectious Disease History: Reports: Hx of Known/Suspected MRSA - buttocks, Hx Shingles Denies: Hx Hepatitis, Hx Human Immunodeficiency Virus (HIV), History Other Infectious Disease, Traveled Outside the [place] in Last 30 Days - Family History Known Family History: Positive: Unknown, Other - Positive for bipolar disorder, depression Negative: Hypertension - Social History Occupation: Works From/At Home Lives: With Family Alcohol Use: None Hx Substance Use: No Substance Use Type: Reports: None Hx Tobacco Use: No Smoking Status (MU): Never Smoked Tobacco Type: Cigarettes Have You Smoked in the Last Year: No Review of Systems Positive: Fever, Chills Eyes: Negative Positive: Sore Throat Cardiovascular: Negative Positive: Cough Gastrointestinal: Negative Positive: Abdominal Pain, Vomiting, Diarrhea Genitourinary: Negative Skin: Negative Neurological: Negative All Other Systems Reviewed And Are Negative: Yes Physical Exam Triage Information Reviewed: Yes Vital Signs On Initial Exam: Initial Vitals Temp Pulse Resp BP Pulse Ox 98.0 F 93 18 104/87 98 12/16/17 09:01 12/16/17 09:01 12/16/17 09:01 12/16/17 09:01 12/16/17 09:01 Vital Signs Reviewed: Yes Appearance: Positive: Well-Appearing - Pt. sitting up in bed in NAD. Skin: Positive: Warm, Dry Head/Face: Positive: Normal Head/Face Inspection Eyes: Positive: Normal, EOMI, JANELL ENT: Positive: TMs normal, Other - Oropharynx with moderate bilateral tonsillar edema and exudates. Uvula is midline without deviation. No muffled voice or trismus. No evidence of peritonsillar abscess. Neck: Positive: Supple, Enlarged Nodes @ Respiratory/Lung Sounds: Positive: Clear to Auscultation, Breath Sounds Present Cardiovascular: Positive: Normal, RRR Neurological: Positive: Normal, CN Intact II-III Psychiatric: Positive: Affect/Mood Appropriate Diagnostics - Vital Signs Vital Signs Temp Pulse Resp BP Pulse Ox 11/01/18 11:00 97.7 F 82 18 106/72 99 12/16/17 09:01 98.0 F 93 18 104/87 98 - Laboratory Lab Results: Lab Results 12/16/17 Range/Units 10:10 Group A Strep Rapid Positive A (Negative) Lab Statement: Any lab studies that have been ordered have been reviewed, and results considered in the medical decision making process. EENT Course/Dx - Course Course Of Treatment: Patient presenting with sore throat, fever and lymphadenopathy. Suspect strep. She was given a dose of ibuprofen, diffuse muscle and Decadron in the ER. Patient is tolerating oral fluids and appears hydrated. Rapid strep is positive. Patient has an allergy to penicillins, we' ll treat with clindamycin. Prescription for Magic swizzle as well. No evidence of abscess on exam. Advised to increase fluids and rest. Tylenol Motrin for pain and fever control. Close follow-up with PCP and return to the ER for increased pain, difficult breathing, swallowing, opening mouth, muffled voice. Patient understands and agrees with plan. - Differential Diagnoses Differential Diagnoses: Peritonsillar Ulcer, Pharyngitis, Sinusitis, Tonsilitis - Diagnoses Provider Diagnoses: Strep pharyngitis Discharge - Sign-Out/Discharge Documenting (check all that apply): Patient Departure - Discharge Plan Condition: Good Disposition: HOME Prescriptions: Clindamycin HCl 150 mg PO Q6H #40 capsule Magic Mouth Was-BURT/MAAL/LIDO* 5 ml SWISH SPIT QID #60 ml Patient Education Materials: Strep Throat (ED) Referrals: Paco Duran MD [Primary Care Provider] - Additional Instructions: Follow up with PCP Take medication as directed Tylenol or Motrin for pain as directed Increase fluids Return to ER for high fevers, vomiting, difficulty opening mouth/swallowing/ breathing - Billing Disposition and Condition Condition: GOOD Disposition: Home
== END | disposition home or self-care (01) ==
LOC: ED 08:52
DX: J02.0 Streptococcal pharyngitis (principal); J45.909 Unspecified asthma, uncomplicated; F31.9 Bipolar disorder, unspecified; Z88.1 Allergy status to other antibiotic agents; Z88.5 Allergy status to narcotic agent; Z88.0 Allergy status to penicillin
CPT/HCPCS: 87651; 99282; A9270-GY; J8540

== ENCOUNTER 2018-02-02 16:31 | Emergency (ER) | payer OTHER ==
[2018-02-02 16:40] VITALS: BP 127/79
--- NOTE | 2018-02-02 17:25 | UC ---
Throat Pain/Nasal Tenzin HPI - HPI Summary HPI Summary: 27-year-old female presents with onset of nasal congestion, sinus congestion, sore throat, and nonproductive cough yesterday. States she was treated 2 weeks ago for strep throat. Completed entire course of antibiotics. Denies fever, chills, ear pain, dysphagia, chest pain, shortness of breath, abdominal pain, nausea, or vomiting. - History of Current Complaint Chief Complaint: UCGeneralIllness Stated Complaint: SORE THROAT Time Seen by Provider: 02/02/18 17:22 Hx Obtained From: Patient Hx Last Menstrual Period: unknown Pain Intensity: 6 - Allergies/Home Medications Allergies/Adverse Reactions: Allergies Allergy/AdvReac Type Severity Reaction Status Date / Time amoxicillin Allergy Hives/Diff. Verified 02/02/18 16:40 Breathing/I tching clarithromycin Allergy Nausea And Verified 02/02/18 16:40 Vomiting codeine Allergy Hives Verified 02/02/18 16:40 Penicillins Allergy Hives/Diff. Verified 02/02/18 16:40 Breathing/I tching PMH/Surg Hx/FS Hx/Imm Hx Previously Healthy: Yes Psychological History: Depression Other History Of: Negative For: Anticoagulant Therapy - Surgical History Surgical History: None - Family History Known Family History: Positive: Other - Positive for bipolar disorder, depression - Social History Occupation: Employed Full-time Lives: Alone Alcohol Use: None Substance Use Type: None Smoking Status (MU): Never Smoked Tobacco Type: Cigarettes Have You Smoked in the Last Year: No When Did the Patient Quit Smoking/Using Tobacco: Pt reports she has never been a smoker Household Exposure Type: Cigarettes - Immunization History Most Recent Influenza Vaccination: 2014 Most Recent Tetanus Shot: 01/26 Most Recent Pneumonia Vaccination: unknown Review of Systems All Other Systems Reviewed And Are Negative: Yes Constitutional: Positive: Fatigue. Negative: Fever, Chills Eyes: Negative: Drainage, Eye Redness ENT: Positive: Sore Throat, Nasal Discharge, Sinus Congestion. Negative: Ear Ache, Sinus Pain/Tenderness Respiratory: Positive: Cough. Negative: Shortness Of Breath Cardiovascular: Negative: Palpitations, Chest Pain Gastrointestinal: Negative: Abdominal Pain, Vomiting, Nausea Is Patient Immunocompromised?: No Physical Exam - Summary Physical Exam Summary: GENERAL APPEARANCE: Well developed, well nourished, alert and cooperative, and appears to be in no acute distress. EYES: Conjunctiva clear. No discharge. Vision is grossly intact. EARS: External auditory canals and tympanic membranes clear, hearing grossly intact. NOSE: Mild nasal congestion with clear discharge. THROAT: Mild pharyngeal erythema with tonsilar swelling or exudate. Oral cavity normal. Teeth and gingiva in good general condition. NECK: Neck supple, non-tender without lymphadenopathy. CARDIAC: Normal S1 and S2. No S3, S4 or murmurs. Rhythm is regular. There is no peripheral edema, cyanosis or pallor. Extremities are warm and well perfused. Capillary refill is less than 2 seconds. LUNGS: Clear to auscultation and percussion without rales, rhonchi, wheezing or diminished breath sounds. ABDOMEN: Positive bowel sounds. Soft, nondistended, nontender. No guarding or rebound. No masses or hepatosplenomegally. MUSKULOSKELETAL: ROM intact to all extremities. No joint erythema or tenderness. Normal muscular development. Normal gait. SKIN: Skin normal color, texture and turgor with no lesions or eruptions. Triage Information Reviewed: Yes Vital Signs: Initial Vital Signs Temp 97.8 F 02/02/18 16:35 Pulse 85 02/02/18 16:35 Resp 20 02/02/18 16:35 BP 127/79 02/02/18 16:35 Pulse Ox 98 02/02/18 16:35 Vital Signs Reviewed: Yes Diagnostics - Laboratory Diagnostic Studies Completed/Ordered: Rapid strep negative. Throat Pain/Nasal Course/Dx - Course Course Of Treatment: 27-year-old female presents with onset of nasal congestion , sinus congestion, sore throat, and nonproductive cough yesterday. States she was treated 2 weeks ago for strep throat. Completed entire course of antibiotics. Denies fever, chills, ear pain, dysphagia, chest pain, shortness of breath, abdominal pain, nausea, or vomiting. Afebrile. Vital signs stable. Exam revealed mild nasal congestion, clear nasal drainage, mild pharyngeal erythema, and a nonproductive cough otherwise exam was benign. Rapid strep was negative. Recommending symptomatic treatment for viral upper respiratory infection. She was prescribed Tessalon Perles one Every 8 hours as needed for cough. She is to follow-up with her primary care provider in 7 days if symptoms persist. Warning symptoms were reviewed with patient. Verbalizes understanding and agrees with plan of care. - Differential Dx/Diagnosis Differential Diagnosis/HQI/PQRI: Influenza, Mononucleosis, Pharyngitis, Sinusitis, Tonsillitis, URI Provider Diagnosis: Viral URI with cough Discharge - Sign-Out/Discharge Documenting (check all that apply): Patient Departure All imaging exams completed and their final reports reviewed: No Studies - Discharge Plan Condition: Stable Disposition: HOME Prescriptions: Benzonatate CAP* [Tessalon 100 MG CAP*] 100 mg PO TID PRN #30 cap PRN Reason: Cough Patient Education Materials: Upper Respiratory Infection (ED) Forms: *Work Release Referrals: Paco Duran MD [Primary Care Provider] - 7 Days (If no improvement in symptoms.) Additional Instructions: Your rapid strep test in the clinic today was negative. Your history and exam are consistent with viral upper respiratory infection. Viral infections do not respond to antibiotics and typically run their course over 7-10 days. Use a saline rinse kit such as Neti Pot or NeilMed at least twice a day. Start over the counter fluticasone nasal spray 2 sprays each nostril once a day. Take an over the counter decongestant such as Sudafed according to directions as needed for nasal congestion. Use Tessalon Perles 1 cap every 8 hours as needed for cough. Take acetaminophen (Tylenol) or ibuprofen (Advil, Motrin) according to directions as needed for fever or pain. Use salt water gargles several times a day if you have a sore throat. You may also use Chloraseptic spray or Cepacol lozenges for some temporary pain relief from your sore throat. Follow-up with your primary care provider in 7 days if symptoms persist. Seek immediate medical attention if you have a persistent fever greater than 100.5 F despite taking acetaminophen or ibuprofen, you are unable to swallow, has difficulty breathing, or have any worsening of symptoms. - Billing Disposition and Condition Condition: STABLE Disposition: Home - Attestation Statements Provider Attestation: Per institutional requirements, I have reviewed the chart, however, I was not consulted specifically or made aware of this patient by the midlevel provider. I did not personally evaluate, interact with , or disposition this patient.
== END 2018-02-02 17:45 | disposition home or self-care (01) ==
LOC: UCEAST 16:31
DX: Z88.0 Allergy status to penicillin (principal); Z88.1 Allergy status to other antibiotic agents; Z88.5 Allergy status to narcotic agent; J06.9 Acute upper respiratory infection, unspecified; R05 Cough
CPT/HCPCS: 87651; 99212; G0463

== ENCOUNTER 2018-03-23 12:49 | Emergency (ER) | payer OTHER ==
[2018-03-23 12:59] VITALS: BP 118/85
[2018-03-23 13:18] LABS: Influenza A Molecular POSITIVE (Negative)
--- NOTE | 2018-03-23 13:50 | UC ---
FLU HPI - HPI Summary HPI Summary: Pt with 36 hours body aches, fevers, congestion, vomiting and chills. Pt works in [place]. Pt has been taking apap with little relief. decreased appetite second to nausea + PO No diarrhea. No rash + flu vaccine + sick contacts not Pt's medications reviewed this visit - History of Current Complaint Chief Complaint: UCGeneralIllness Stated Complaint: FLU-LIKE SYMPTOMS Time Seen by Provider: 03/23/18 13:23 Hx Obtained From: Patient Hx Last Menstrual Period: 02/16/18 ?: No Onset/Duration: Sudden Onset Pain Intensity: 9 - Allergy/Home Medications Allergies/Adverse Reactions: Allergies Allergy/AdvReac Type Severity Reaction Status Date / Time amoxicillin Allergy Hives/Diff. Verified 03/23/18 12:59 Breathing/I tching clarithromycin Allergy Nausea And Verified 03/23/18 12:59 Vomiting codeine Allergy Hives Verified 03/23/18 12:59 Penicillins Allergy Hives/Diff. Verified 03/23/18 12:59 Breathing/I tching PMH/Surg Hx/FS Hx/Imm Hx Previously Healthy: Yes Other History Of: Negative For: Anticoagulant Therapy - Surgical History Surgical History: None - Family History Known Family History: Positive: Unknown, Other - Positive for bipolar disorder, depression Negative: Hypertension - Social History Alcohol Use: None Substance Use Type: None Smoking Status (MU): Never Smoked Tobacco Type: Cigarettes Have You Smoked in the Last Year: No When Did the Patient Quit Smoking/Using Tobacco: Pt reports she has never been a smoker Household Exposure Type: Cigarettes - Immunization History Most Recent Influenza Vaccination: 2014 Most Recent Tetanus Shot: 01/26 Most Recent Pneumonia Vaccination: unknown Review of Systems All Other Systems Reviewed And Are Negative: Yes Constitutional: Positive: Fever, Chills, Fatigue ENT: Positive: Nasal Discharge, Sinus Congestion, Sinus Pain/Tenderness Respiratory: Positive: Cough Cardiovascular: Positive: Negative Gastrointestinal: Positive: Vomiting Physical Exam - Summary Physical Exam Summary: Vital Signs Reviewed: Yes A+Ox3, congestion Eyes: Conjunctiva Clear, JANELL. EOM intact and full ENT: Hearing grossly normal mild fluid b/l TM, turbinates inflammed and boggy, + PND, mmoist, uvula midline, no exudate, no erythema Neck: Positive: Supple Respiratory: Positive: No respiratory distress, No accessory muscle use + CTA throughout no w/r Cardiovascular: RRR nl s1, s2 no m/r CBT <2 sec abd soft + BS nt/nd no guarding, no distension Musculoskeletal Exam: QUINTANILLA x 4 without difficulty Strength Intact, ROM Intact Neurological: Positive: Alert, + sensation throughout Psychological: Positive: Normal Response To Family Skin: Positive: no rash, no ecchymosis Triage Information Reviewed: Yes Vital Signs: Initial Vital Signs Temp 99.2 F 03/23/18 12:56 Pulse 110 03/23/18 12:56 Resp 18 03/23/18 12:56 BP 118/85 03/23/18 12:56 Pulse Ox 100 03/23/18 12:56 Flu Course/Dx - Course Course Of Treatment: Pt wtih body aches, fevers, emesis, congestions. VSS. + influenza. Pt hydrated, congested. Pt has zofran at home -declined at . work note. motrin/apap. supportive care. hydrate. secretion. work note - Differential Dx/Diagnosis Provider Diagnosis: Influenza A Discharge - Sign-Out/Discharge Documenting (check all that apply): Patient Departure All imaging exams completed and their final reports reviewed: No Studies - Discharge Plan Condition: Stable Disposition: HOME Prescriptions: Oseltamivir Phosphate [Tamiflu] 75 mg PO BID #10 capsule Patient Education Materials: Influenza (ED) Forms: *Work Release Referrals: No Primary Care Phys,NOPCP [Primary Care Provider] - Additional Instructions: Your testing was positive for influenza A today "the flu" - Stay well hydrated. Drink plenty of non-alcoholic, non-caffinated beverages. - Alternate ibuprofen (Advil, Motrin) 600mg and Tylenol every 3 hours for pain or fever. Take with food. Do NOT take for more than 4-5 days. - These infections are spread by secretions - do NOT share eating or drinking utensils - clean items you share with other people such as cell phones, computer mouse, TV remote, computer tablets,etc. Once you start to feel better, change your toothbrush and your pillowcase. - get plenty of restful sleep - Take tamiflu as prescribed until gone - humidify the air in the room where you sleep - boil water, run a hot steam shower, vaporizer, cups of water by heat register - okay to take over the counter decongestant and cough medication - get plenty of restful sleep. -okay to take zofran every 6 hours as needed for nausea - contact your doctor or return with questions or concerns - Billing Disposition and Condition Condition: STABLE Disposition: Home
== END 2018-03-23 14:10 | disposition home or self-care (01) ==
LOC: UCEAST 12:49
DX: J10.1 Influenza due to other identified influenza virus with other respiratory manifestations (principal); Z88.1 Allergy status to other antibiotic agents; Z88.5 Allergy status to narcotic agent; Z88.0 Allergy status to penicillin
CPT/HCPCS: 99212; G0463

== ENCOUNTER 2018-04-25 13:33 | Emergency (ER) | payer OTHER ==
[2018-04-25 13:46] VITALS: BP 109/78
--- NOTE | 2018-04-25 14:07 | UC ---
Abdominal Pain Female HPI - HPI Summary HPI Summary: 27-year-old woman comes in with a chief complaint of nausea and vomiting and abdominal pain. Patient reports this started 4 days ago after eating some [place] food that she felt was bad. She gets epigastric pain and she vomits and then the pain goes away. She occasionally also gets some lower abdominal cramping. At this time she has no pain. He's had a chief nauseous. She has been able to eat some food items and drink some liquids. She's not vomited since yesterday however she still gets some intermittent abdominal cramping. No fevers or chills. She has been having a runny nose and a headache. Does not feel lightheaded. No dysuria. No abnormal vaginal discharge. No c/o sti. - History of Current Complaint Chief Complaint: UCAbdominalPain Stated Complaint: ABD PAIN VOMITING Time Seen by Provider: 04/25/18 13:50 Hx Last Menstrual Period: March Pain Intensity: 7 Allergies/Adverse Reactions: Allergies Allergy/AdvReac Type Severity Reaction Status Date / Time amoxicillin Allergy Hives/Diff. Verified 04/25/18 13:46 Breathing/I tching clarithromycin Allergy Nausea And Verified 04/25/18 13:46 Vomiting codeine Allergy Hives Verified 04/25/18 13:46 Penicillins Allergy Hives/Diff. Verified 04/25/18 13:46 Breathing/I tching Home Medications: Home Medications Pseudoephedrine HCl [Sudafed] 30 mg PO 04/25/18 [History] PMH/Surg Hx/FS Hx/Imm Hx Previously Healthy: Yes Psychological History: Anxiety, Depression Other History Of: Negative For: Anticoagulant Therapy - Surgical History Surgical History: None - Family History Known Family History: Positive: Unknown, Other - Positive for bipolar disorder, depression Negative: Hypertension - Social History Alcohol Use: None Substance Use Type: None Smoking Status (MU): Never Smoked Tobacco Type: Cigarettes Have You Smoked in the Last Year: No When Did the Patient Quit Smoking/Using Tobacco: Pt reports she has never been a smoker Household Exposure Type: Cigarettes - Immunization History Most Recent Influenza Vaccination: 2014 Most Recent Tetanus Shot: 01/26 Most Recent Pneumonia Vaccination: unknown Review of Systems All Other Systems Reviewed And Are Negative: Yes Constitutional: Positive: Negative Skin: Positive: Negative Eyes: Positive: Negative ENT: Positive: Nasal Discharge, Sinus Congestion Respiratory: Positive: Negative Cardiovascular: Positive: Negative Gastrointestinal: Positive: Abdominal Pain, Vomiting, Diarrhea, Nausea Genitourinary: Positive: Negative Motor: Positive: Negative Neurovascular: Positive: Negative Musculoskeletal: Positive: Negative Neurological: Positive: Negative Psychological: Positive: Negative Is Patient Immunocompromised?: No Physical Exam Triage Information Reviewed: Yes Appearance: Well-Appearing, No Pain Distress, Well-Nourished Vital Signs: Initial Vital Signs Temp 98.0 F 04/25/18 13:39 Pulse 71 04/25/18 13:39 Resp 16 04/25/18 13:39 BP 109/78 04/25/18 13:39 Pulse Ox 98 04/25/18 13:39 Vital Signs Reviewed: Yes Eye Exam: Normal Eyes: Positive: Conjunctiva Clear ENT: Positive: Pharynx normal, TMs normal Respiratory: Positive: Lungs clear, Normal breath sounds, No respiratory distress Cardiovascular: Positive: RRR Abdomen Description: Positive: Nontender, Soft Bowel Sounds: Positive: Present Musculoskeletal Exam: Normal Musculoskeletal: Positive: Strength Intact, ROM Intact Neurological Exam: Normal Neurological: Positive: Alert, Muscle Tone Normal Psychological Exam: Normal Psychological: Positive: Age Appropriate Behavior Skin Exam: Normal Abd Pain Female Course/Dx - Course Course Of Treatment: Intermittent Epigastric abdominal pain is midline. Intermittent lower abdominal pain is diffuse. No abdominal pain/tenderness in clinic. - Differential Dx/Diagnosis Provider Diagnosis: Abdominal pain, Epigastric abdominal pain, Nausea & vomiting Discharge - Sign-Out/Discharge Documenting (check all that apply): Patient Departure All imaging exams completed and their final reports reviewed: No Studies - Discharge Plan Condition: Stable Disposition: HOME Patient Education Materials: Acute Nausea and Vomiting (ED), Acute Abdominal Pain (ED) Forms: *Work Release Referrals: [facility] [place] PHYSICIAN REFERRAL [Outside] Additional Instructions: FOLLOW UP WITH YOUR DOCTOR IF NOT COMPLETELY IMPROVED. GET RECHECKED FOR ANY WORSENING OF YOUR CONDITION OR QUESTIONS OR CONCERNS. - Billing Disposition and Condition Condition: STABLE Disposition: Home
== END 2018-04-25 14:17 | disposition home or self-care (01) ==
LOC: UCEAST 13:33
DX: R11.2 Nausea with vomiting, unspecified (principal); R10.13 Epigastric pain; R09.81 Nasal congestion; R51 Headache; Z88.0 Allergy status to penicillin; Z88.1 Allergy status to other antibiotic agents; Z88.5 Allergy status to narcotic agent
CPT/HCPCS: 99211; G0463

== ENCOUNTER 2018-06-04 09:14 | Emergency (ER) | payer OTHER ==
[2018-06-04 11:00] VITALS: BP 127/80
--- NOTE | 2018-06-04 11:08 | ED ---
Upper Extremity Pain - HPI Summary HPI Summary: Patient is a 28-year-old female presenting to the ED with left shoulder pain. 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 Since that time, she is endorsing some pain to the most superior and anterior portion of the shoulder. Flexion and extension intact and without discomfort. Abduction with pain, however adduction without discomfort. No evidence or signs of trauma to the area. Denies any other injuries. Patient is also endorsing and increase in anxiety and depression. She denies any SI or HI. She was prescribed sertraline by her PCP, however since moving here has not had a refill of this medication. She currently does not have a PCP and is requesting one. She is requesting a small dose of sertraline for at that time for her symptoms. - History of Current Complaint Chief Complaint: Scooterj Stated Complaint: LEFT SHOULDER PAIN PER PT Time Seen by Provider: 06/04/18 09:23 Hx Obtained From: Patient Hx Last Menstrual Period: March Mechanism Of Injury: Direct Blow - to the anterior shoulder Onset/Duration: Started Hours Ago Timing: Constant Severity Initially: Moderate Severity Currently: Moderate Pain Location: Shoulder - left shoulder pain Character: Aching Aggravating Factor(s): Nothing Alleviating Factor(s): Nothing Associated Signs & Symptoms: Positive: Negative. Negative: Swelling, Redness, Weakness, Numbness/Tingling, Diaphoresis, Nausea, Vomiting Related History: Dominant Hand Right - Risk Factors Non-Orthopedic Risk Factor: Negative DVT Risk Factors: Negative Septic Arthritis Risk Factor: Negative Compartment Syndrome Risk Factors: Pain - Allergies/Home Medications Allergies/Adverse Reactions: Allergies Allergy/AdvReac Type Severity Reaction Status Date / Time amoxicillin Allergy Hives/Diff. Verified 06/04/18 09:22 Breathing/I tching clarithromycin Allergy Nausea And Verified 06/04/18 09:22 Vomiting codeine Allergy Hives Verified 06/04/18 09:22 Penicillins Allergy Hives/Diff. Verified 06/04/18 09:22 Breathing/I tching PMH/Surg Hx/FS Hx/Imm Hx Previously Healthy: Yes Endocrine/Hematology History: Reports: Hx Unexplained Bleeding - PT HAS IRREG. BLEEDING SINCE CHILDBIRTH-QOD - improved since nexplanon Denies: Hx Anticoagulant Therapy, Hx Blood Disorders, Hx Blood Transfusions, Hx Bone Marrow Disease, Hx Diabetes, Hx Systemic Lupus Erythematosus, Hx Sickle Cell Disease, Hx Thyroid Disease, Hx Anemia, Other Endocrine/Hematological Disorders Cardiovascular History: Denies: Hx Hypertension Respiratory History: Reports: Hx Asthma - Uses Albuterol MDI PRN, last use "a long time ago" Denies: Hx Chronic Obstructive Pulmonary Disease (COPD), Other Respiratory Problems/Disorders GI History: Denies: Hx Ulcer, Other GI Disorders Sensory History: Denies: Hx Cataracts, Hx Contacts or Glasses, Hx Eye Injury, Hx Eye Prosthesis, Hx Glaucoma, Hx Macular Degeneration, Hx Vision Problem, Hx Deafness , Hx Hearing Aid, Hx Hearing Problem, Other Sensory Impairments Opthamlomology History: Denies: Hx Cataracts, Hx Contacts or Glasses, Hx Eye Injury, Hx Eye Prosthesis, Hx Glaucoma, Hx Macular Degeneration, Hx Vision Problem, Other Sensory Impairments Neurological History: Reports: Hx Headaches, Other Neuro Impairments/Disorders - PT REPORTS SHE HAS YET TO 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 Psychiatric History: Reports: Hx Anxiety, Hx Depression - bipolar disorder on Zoloft, Hx Post Traumatic Stress Disorder, Hx Inpatient Treatment, Hx Community Mental Health Tx - [facility] - [facility], Hx Bipolar Disorder Denies: Hx Attention Deficit Hyperactivity Disorder, Hx Eating Disorder, Hx Panic Disorder, Hx Schizophrenia, Hx Suicide Attempt, Hx of Violent Episodes Against Others, Hx Substance Abuse, Other Psychiatric Issues/Disorders - Immunization History Hx Pertussis Vaccination: No Immunizations Up to Date: Yes Infectious Disease History: No Infectious Disease History: Reports: Hx of Known/Suspected MRSA - buttocks, Hx Shingles Denies: Hx Hepatitis, Hx Human Immunodeficiency Virus (HIV), History Other Infectious Disease, Traveled Outside the [place] in Last 30 Days - Family History Known Family History: Positive: Unknown, Other - Positive for bipolar disorder, depression Negative: Hypertension - Social History Occupation: Employed Full-time Lives: With Family Alcohol Use: None Hx Substance Use: No Substance Use Type: Reports: None Hx Tobacco Use: No Smoking Status (MU): Never Smoked Tobacco Type: Cigarettes Have You Smoked in the Last Year: No Review of Systems Constitutional: Negative Negative: Chills, Fatigue Negative: Dental Pain Negative: Palpitations, Chest Pain Negative: Shortness Of Breath, Cough Genitourinary: Negative Positive: no symptoms reported, see HPI Positive: Arthralgia - left shoulder pain. Negative: Myalgia Skin: Negative Neurological: Negative All Other Systems Reviewed And Are Negative: Yes Physical Exam Triage Information Reviewed: Yes Vital Signs On Initial Exam: Initial Vitals Temp Pulse Resp BP Pulse Ox 96.9 F 77 18 127/82 99 06/04/18 09:16 06/04/18 09:16 06/04/18 09:16 06/04/18 09:16 06/04/18 09:16 Vital Signs Reviewed: Yes Appearance: Positive: Well-Appearing, Well-Nourished Skin: Positive: Warm, Skin Color Reflects Adequate Perfusion Head/Face: Positive: Normal Head/Face Inspection Eyes: Positive: EOMI, Conjunctiva Clear Neck: Positive: Supple, No Lymphadenopathy Respiratory/Lung Sounds: Positive: Clear to Auscultation, Breath Sounds Present Cardiovascular: Positive: RRR, Pulses are Symmetrical in both Upper and Lower Extremities Musculoskeletal: Positive: Normal, Strength/ROM Intact, Other - see above Neurological: Positive: Speech Normal Psychiatric: Positive: Affect/Mood Appropriate Diagnostics - Vital Signs Vital Signs Temp Pulse Resp BP Pulse Ox 06/04/18 10:58 97.3 F 60 14 127/80 100 06/04/18 09:16 96.9 F 77 18 127/82 99 - Laboratory Lab Statement: Any lab studies that have been ordered have been reviewed, and results considered in the medical decision making process. Course/Dx - Course Course Of Treatment: During the course of treatment, the patient's evaluated for left shoulder pain. Patient is able to flex and extend without discomfort. Passive range of motion to 90 without discomfort. Patient is able to have active range of motion, however with discomfort at 30 adduction. She is never injured this arm before. She denies any numbness or tingling, color temperature changes to the ipsilateral arm her fingertips. Radial pulse +2 intact bilaterally. Good cap refill. She will be diagnosed with shoulder strain and rotator cuff injury. X-rays not obtained as this appears to be a strain and patient has full range of motion still intact. She will follow-up with orthopedics if any symptoms worsen or change. Patient is comfortable with this plan. She is also requesting sertraline for her depression. Patient continues to deny any SI or HI, however endorses an increase in stress due to working several jobs and having 4 kids at home. I have agreed to give her a 4 day supply of 100 mg sertraline at bedtime and have given her care connections follow-up. - Diagnoses Differential Diagnosis/HQI/PQRI: Positive: Strain, Sprain Provider Diagnoses: Rotator cuff strain, Depression, Anxiety Discharge - Sign-Out/Discharge Documenting (check all that apply): Patient Departure Patient Received Moderate/Deep Sedation with Procedure: No - Discharge Plan Condition: Stable Disposition: HOME Prescriptions: predniSONE TAB* [Deltasone TAB*] 50 mg PO DAILY #5 tab Sertraline* [Zoloft*] 100 mg PO BEDTIME #4 tab Patient Education Materials: Shoulder Pain (ED) Forms: *Work Release Referrals: Franck Ross MD [Medical Doctor] - No Primary Care Phys,NOPCP [Primary Care Provider] - Additional Instructions: If symptoms persist, please follow up with orthopedics Ibuprofen 600mg three times daily x 4-5 days Moist heat to the area starting tomorrow Ice today Prednisone once daily x 5 days - Billing Disposition and Condition Condition: STABLE Disposition: Home
== END 2018-06-04 10:58 | disposition home or self-care (01) ==
LOC: ED 09:14
DX: S43.402A Unspecified sprain of left shoulder joint, initial encounter (principal); F32.9 Major depressive disorder, single episode, unspecified; F41.9 Anxiety disorder, unspecified; X50.0XXA Overexertion from strenuous movement or load, initial encounter; Y92.9 Unspecified place or not applicable; Y99.0 Civilian activity done for income or pay; Z88.0 Allergy status to penicillin; Z88.5 Allergy status to narcotic agent
CPT/HCPCS: 99282

== ENCOUNTER 2018-10-29 09:31 | Emergency (ER) | payer MEDICAID, OTHER ==
[2018-10-29] MEDS ORDERED: HYDROcodone/ACETAMIN 5-325 MG* 1 TAB PO ONE (10:56)
[2018-10-29 11:28] VITALS: BP 117/82
--- NOTE | 2018-10-29 12:51 | ED ---
Throat Pain/Nasal Congestion - HPI Summary HPI Summary: This patient is a 28-year-old female who presents to the ED with upper lip swelling with maxillary sinus swelling. Patient states she chipped her tooth in the middle of the night by grinding her teeth approximate 4 days ago. Since that time, she started to have swelling. She was seen by her dentist who gave her clindamycin, however despite taking ibuprofen and Tylenol, the area continues to swell. She denies any airway difficulty, airway compromise, shortness of breath, difficulty swallowing, or pain with swallowing. Denies any bilateral ear pain. Denies any eye pain. She states she continues to be able to eat and drink okay, however this is worse to the left side. She is endorsing bilateral lymphadenopathy symptoms. - History of Current Complaint Chief Complaint: EDDentalPain Time Seen by Provider: 10/29/18 09:54 Hx Obtained From: Patient Onset/Duration: Sudden Onset Severity: Moderate Associated Signs And Symptoms: Positive: Negative - Epiglottits Risk Factors Epiglottis Risk Factors: Negative - Allergies/Home Medications Allergies/Adverse Reactions: Allergies Allergy/AdvReac Type Severity Reaction Status Date / Time amoxicillin Allergy Hives/Diff. Verified 10/29/18 09:40 Breathing/I tching clarithromycin Allergy Nausea And Verified 10/29/18 09:40 Vomiting codeine Allergy Hives Verified 10/29/18 09:40 Penicillins Allergy Hives/Diff. Verified 10/29/18 09:40 Breathing/I tching Home Medications: Home Medications Acetaminophen [Tylenol Extra Strength] 1 - 2 tab PO Q8H PRN 10/29/18 [History Confirmed 10/29/18] Aspirin/Acetaminophen/Caffeine [Excedrin Extra Strength Caplet] 1 tab PO Q8H PRN 10/29/18 [History Confirmed 10/29/18] Clindamycin Cap(NF) [Clindamycin Cap 300 mg Cap(NF)] 300 mg PO Q8H 10/29/18 [ History Confirmed 10/29/18] Ibuprofen TAB* [Advil TAB*] 400 - 600 mg PO Q6H PRN 10/29/18 [History Confirmed 10/29/18] PMH/Surg Hx/FS Hx/Imm Hx Previously Healthy: Yes Endocrine/Hematology History: Reports: Hx Unexplained Bleeding - PT HAS IRREG. BLEEDING SINCE CHILDBIRTH-QOD - improved since nexplanon Denies: Hx Anticoagulant Therapy, Hx Blood Disorders, Hx Blood Transfusions, Hx Bone Marrow Disease, Hx Diabetes, Hx Systemic Lupus Erythematosus, Hx Sickle Cell Disease, Hx Thyroid Disease, Hx Anemia, Other Endocrine/Hematological Disorders Cardiovascular History: Denies: Hx Hypertension Respiratory History: Reports: Hx Asthma - Uses Albuterol MDI PRN, last use "a long time ago" Denies: Hx Chronic Obstructive Pulmonary Disease (COPD), Other Respiratory Problems/Disorders GI History: Denies: Hx Ulcer, Other GI Disorders Sensory History: Denies: Hx Cataracts, Hx Contacts or Glasses, Hx Eye Injury, Hx Eye Prosthesis, Hx Glaucoma, Hx Macular Degeneration, Hx Vision Problem, Other Sensory Impairments Opthamlomology History: Denies: Hx Cataracts, Hx Contacts or Glasses, Hx Eye Injury, Hx Eye Prosthesis, Hx Glaucoma, Hx Macular Degeneration, Hx Vision Problem, Other Sensory Impairments Neurological History: Reports: Hx Headaches, Other Neuro Impairments/Disorders - PT REPORTS SHE HAS YET TO 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 Psychiatric History: Reports: Hx Anxiety, Hx Depression - bipolar disorder on Zoloft, Hx Post Traumatic Stress Disorder, Hx Inpatient Treatment, Hx Community Mental Health Tx - [facility] - [facility], Hx Bipolar Disorder Denies: Hx Attention Deficit Hyperactivity Disorder, Hx Eating Disorder, Hx Panic Disorder, Hx Schizophrenia, Hx Suicide Attempt, Hx of Violent Episodes Against Others, Hx Substance Abuse, Other Psychiatric Issues/Disorders - Immunization History Hx Pertussis Vaccination: No Immunizations Up to Date: Yes Infectious Disease History: No Infectious Disease History: Reports: Hx of Known/Suspected MRSA - buttocks, Hx Shingles Denies: Hx Hepatitis, Hx Human Immunodeficiency Virus (HIV), History Other Infectious Disease, Traveled Outside the [place] in Last 30 Days - Family History Known Family History: Positive: Unknown, Other - Positive for bipolar disorder, depression Negative: Hypertension - Social History Occupation: Employed Full-time Lives: With Family Alcohol Use: None Hx Substance Use: No Substance Use Type: Reports: None Hx Tobacco Use: No Smoking Status (MU): Never Smoked Tobacco Type: Cigarettes Have You Smoked in the Last Year: No Review of Systems Constitutional: Negative Negative: Fever, Chills, Fatigue Positive: Dental Pain - upper dental pain over tooth #9/ chipped tooth. Negative: Sore Throat Negative: Chest Pain Negative: Shortness Of Breath, Cough Positive: no symptoms reported, see HPI Negative: Rash, Bruising Neurological: Negative All Other Systems Reviewed And Are Negative: Yes Physical Exam Triage Information Reviewed: Yes Vital Signs On Initial Exam: Initial Vitals Temp Pulse Resp BP Pulse Ox 97.5 F 84 16 124/86 98 10/29/18 09:35 10/29/18 09:35 10/29/18 09:35 10/29/18 09:35 10/29/18 09:35 Vital Signs Reviewed: Yes Appearance: Positive: Well-Appearing, Pain Distress Skin: Positive: Skin Color Reflects Adequate Perfusion, Other - swelling of the upper lip and bilateral maxillary sinus pressure and pain Eyes: Positive: EOMI, JANELL, Conjunctiva Clear Neck: Positive: Supple, No Lymphadenopathy Respiratory/Lung Sounds: Positive: Clear to Auscultation, Breath Sounds Present Cardiovascular: Positive: Pulses are Symmetrical in both Upper and Lower Extremities Musculoskeletal: Positive: Strength/ROM Intact Neurological: Positive: Speech Normal Psychiatric: Positive: Affect/Mood Appropriate Diagnostics - Vital Signs Vital Signs Temp Pulse Resp BP Pulse Ox 10/29/18 11:27 97.9 F 75 18 117/82 98 10/29/18 09:35 97.5 F 84 16 124/86 98 - Laboratory Lab Statement: Any lab studies that have been ordered have been reviewed, and results considered in the medical decision making process. EENT Course/Dx - Course Course Of Treatment: This patient was seen by her dentist 3 days ago after a chipped tooth began to cause upper lip swelling as well as bilateral maxillary sinus swelling. She denies any known infection. However, dentist placed patient on clindamycin and encouraged ibuprofen. She states she has been taking this with minimal relief of pain. Her pain is currently rated 7/10. She is requesting pain control. She does have a follow-up to the dentist on Wednesday to get the tooth fixed. I discussed treatment options with the patient. Discussed prescribing strong her pain management of hydrocodone. Patient states she is okay with this as she has had this in the past without allergic reactions. She is encouraged continuation of clindamycin. - Differential Diagnoses Differential Diagnoses: Fractured Tooth, Other - sinus tenderness, dental infection, dental swelling, lip swelling, inflammation - Diagnoses Provider Diagnoses: Tooth fracture, Swollen face Discharge ED - Sign-Out/Discharge Documenting (check all that apply): Patient Departure Patient Received Moderate/Deep Sedation with Procedure: No - Discharge Plan Condition: Stable Disposition: HOME Prescriptions: HYDROcodone/ACETAMIN 5-325 MG* [Flushing 5-325 TAB*] 1 tab PO Q4H PRN #18 tab MDD 6 PRN Reason: Pain Referrals: No Primary Care Phys,NOPCP [Primary Care Provider] - Additional Instructions: Please follow up with your dentist as scheduled on Wednesday Hydrocodone may be used up to every 4 hours for pain - do not exceed 6 per day Your next dose will be between 5-6pm this evening since we gave you extra in the ED Ice to the area much as possible - Billing Disposition and Condition Condition: STABLE Disposition: Home - Attestation Statements Provider Attestation: I was available for consultation for this patient. I did not evaluate the patient or participate in any medical decision making or disposition decisions unless I am specifically named in the chart as having consulted on the patient. If I have consulted on the patient, please see my own ED note on the patient encounter. Enmanuel Brice MD
== END 2018-10-29 11:25 | disposition home or self-care (01) ==
LOC: ED 09:31
DX: K03.81 Cracked tooth (principal); R22.0 Localized swelling, mass and lump, head; Z88.0 Allergy status to penicillin; Z79.82 Long term (current) use of aspirin; Z79.899 Other long term (current) drug therapy; Z86.14 Personal history of Methicillin resistant Staphylococcus aureus infection; Z86.19 Personal history of other infectious and parasitic diseases
CPT/HCPCS: 99282

== ENCOUNTER 2018-10-30 06:32 | Emergency (ER) | payer OTHER ==
[2018-10-30] MEDS ORDERED: diPHENhydraMINE IV* 50 MG/ML 1 ml VIAL (BENADRYL) IV ONE (06:46)
[2018-10-30] MEDS ORDERED: methylPREDNISolone 125 MG* 2 ML VIAL IV ONE (06:46)
[2018-10-30] MEDS ORDERED: NS 0.9% 1000 ML** 1,000 ML IV ONE ×2 (06:46→13:09)
[2018-10-30] MEDS ORDERED: Famotidine IV* 10 MG/ML 2 ML (20 mg) IV SLOW PU ONE (06:48)
[2018-10-30] MEDS ORDERED: Clindamycin 600 MG IVPREMIX(* 600 MG/50 ML SDV IV ONE (07:01)
[2018-10-30] MEDS ORDERED: Ondansetron INJ* 2 MG/ML VIAL IV ONE (07:01)
[2018-10-30] MEDS ORDERED: Lidocaine 1% INJ* 10 MG/ML 30 ML SDV INJ ONE (07:01)
[2018-10-30] MEDS ORDERED: Ketorolac INJ* 30 MG/ML 1 ML VIAL IV ONE (07:02)
--- NOTE | 2018-10-30 07:13 | ED ---
Throat Pain/Nasal Congestion - HPI Summary HPI Summary: 28-year-old female who presents with upper lip swelling for 5 days. Patient states she chipped her tooth about 4 days ago, had upper lip swelling. Was seen by dentist placed on clindamycin (swelling began prior to swelling). Patient was in the emergency department yesterday for upper lip swelling, without any difficulty swallowing or trouble breathing. Patient was discharged continuing Tylenol Motrin. Patient states that her upper lip swelling has increased, now she has swelling on her cheeks and under her eyes. She is reporting significant pain under her upper lip, 10/10, achy worsen when she opens her mouth. No trouble swallowing. - History of Current Complaint Chief Complaint: EDAllergicReaction Time Seen by Provider: 10/30/18 06:54 Hx Obtained From: Patient Onset/Duration: Sudden Onset, Lasting Days - 1, Still Present Severity: Moderate Cough: None - Allergies/Home Medications Allergies/Adverse Reactions: Allergies Allergy/AdvReac Type Severity Reaction Status Date / Time amoxicillin Allergy Hives/Diff. Verified 10/30/18 06:51 Breathing/I tching clarithromycin Allergy Nausea And Verified 10/30/18 06:51 Vomiting codeine Allergy Hives Verified 10/30/18 06:51 Penicillins Allergy Hives/Diff. Verified 10/30/18 06:51 Breathing/I tching PMH/Surg Hx/FS Hx/Imm Hx Previously Healthy: Yes Endocrine/Hematology History: Reports: Hx Unexplained Bleeding - PT HAS IRREG. BLEEDING SINCE CHILDBIRTH-QOD - improved since nexplanon Denies: Hx Anticoagulant Therapy, Hx Blood Disorders, Hx Blood Transfusions, Hx Bone Marrow Disease, Hx Diabetes, Hx Systemic Lupus Erythematosus, Hx Sickle Cell Disease, Hx Thyroid Disease, Hx Anemia, Other Endocrine/Hematological Disorders Cardiovascular History: Denies: Hx Hypertension Respiratory History: Reports: Hx Asthma - Uses Albuterol MDI PRN, last use "a long time ago" Denies: Hx Chronic Obstructive Pulmonary Disease (COPD), Other Respiratory Problems/Disorders GI History: Denies: Hx Ulcer, Other GI Disorders Sensory History: Denies: Hx Cataracts, Hx Contacts or Glasses, Hx Eye Injury, Hx Eye Prosthesis, Hx Glaucoma, Hx Macular Degeneration, Hx Vision Problem, Other Sensory Impairments Opthamlomology History: Denies: Hx Cataracts, Hx Contacts or Glasses, Hx Eye Injury, Hx Eye Prosthesis, Hx Glaucoma, Hx Macular Degeneration, Hx Vision Problem, Other Sensory Impairments Neurological History: Reports: Hx Headaches, Other Neuro Impairments/Disorders - PT REPORTS SHE HAS YET TO 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 Psychiatric History: Reports: Hx Anxiety, Hx Depression - bipolar disorder on Zoloft, Hx Post Traumatic Stress Disorder, Hx Inpatient Treatment, Hx Community Mental Health Tx - [facility] - [facility], Hx Bipolar Disorder Denies: Hx Attention Deficit Hyperactivity Disorder, Hx Eating Disorder, Hx Panic Disorder, Hx Schizophrenia, Hx Suicide Attempt, Hx of Violent Episodes Against Others, Hx Substance Abuse, Other Psychiatric Issues/Disorders Infectious Disease History: No Infectious Disease History: Reports: Hx of Known/Suspected MRSA - buttocks, Hx Shingles Denies: Hx Hepatitis, Hx Human Immunodeficiency Virus (HIV), History Other Infectious Disease, Traveled Outside the [place] in Last 30 Days - Family History Known Family History: Positive: Unknown, Other - Positive for bipolar disorder, depression Negative: Hypertension - Social History Alcohol Use: Rare Hx Substance Use: No Substance Use Type: Reports: None Hx Tobacco Use: No Smoking Status (MU): Never Smoked Tobacco Type: Cigarettes Have You Smoked in the Last Year: No Review of Systems Positive: Dental Pain, Other - facial swelling Negative: Shortness Of Breath All Other Systems Reviewed And Are Negative: Yes Physical Exam - Summary Physical Exam Summary: Constitutional: Well-developed, Well-nourished, Alert. (-) Distressed Skin: Warm, Dry HENT: Normocephalic; diffuse swelling to upper lip w underlying area of fluctuance above central incisors. Periorbital edema. Mild trismus. Eyes: Conjunctiva normal Neck: Musculoskeletal ROM normal neck. (-) JVD, (-) Stridor Cardio: Rhythm regular, rate normal, Heart sounds normal; Intact distal pulses; Radial pulses are 2+ and symmetric. (-) Murmur Pulmonary/Chest wall: Effort normal. (-) Respiratory distress, (-) Wheezes, (-) Rales Abd: Soft, (-) tenderness, (-) Distension, (-) Guarding, (-) Rebound Musculoskeletal: (-) Edema Lymph: (-) Cervical adenopathy Neuro: Alert, Oriented x3 Psych: Mood and affect Normal Triage Information Reviewed: Yes Vital Signs On Initial Exam: Initial Vitals Temp Pulse Resp BP Pulse Ox 36.1 C 79 18 132/108 98 10/30/18 06:33 10/30/18 06:33 10/30/18 06:33 10/30/18 06:33 10/30/18 06:33 Vital Signs Reviewed: Yes Procedures - Incision and Drainage Upper Lip Site: Upper lip Anesthesia: Lidocaine - 1% without Epi Instrument(s): Scalpel Packing: Other Diagnostics - Vital Signs Vital Signs Temp Pulse Resp BP Pulse Ox 10/30/18 07:00 75 98 10/30/18 06:58 77 124/86 98 10/30/18 06:52 76 97 10/30/18 06:33 36.1 C 79 18 132/108 98 - Laboratory Result Diagrams: 10/30/18 07:11 10/30/18 07:11 Lab Statement: Any lab studies that have been ordered have been reviewed, and results considered in the medical decision making process. - CT Maxillofacial CT CT Interpretation Completed By: Radiologist Summary of CT Findings: 1. Soft tissue inflammatory change without visualized abscess collection. 2. Mucosal thickening and fluid level at the LEFT maxillary sinus which may reflect acute sinusitis. Indolent thickening of the LEFT maxillary sinus russell suggest a component of chronic sinusitis. ED physician has reviewed this report. Re-Evaluation - Re-Evaluation First Eval Comment: CT w/o obvious abscess but limited given dental fillings, will attempt I&D, likely needs oral surgery/ENT. EENT Course/Dx - Course Course Of Treatment: 28 y/o female presents with upper lip swelling concerning for dental versus facial abscess. No difficulty in breathing or trouble swallowing, maintaining airway. Check CT max face - Diagnoses Provider Diagnoses: Dental abscess, Facial swelling - Provider Notifications Discussed Care Of Patient With: Ramiro Vasquez MD Time Discussed With Above Provider: 11:10 Instructed by Provider To: Transfer - [facility] ED Admit/Transition Orders Completed By ED Provider: Yes Reason For Transfer: Specialty or service not available at [facility]. Discharge ED - Sign-Out/Discharge Documenting (check all that apply): Patient Departure - transfer Patient Received Moderate/Deep Sedation with Procedure: No - Discharge Plan Condition: Stable Disposition: TRANS HIGHER LVL OF CARE FAC Referrals: No Primary Care Phys,NOPCP [Primary Care Provider] - - Billing Disposition and Condition Condition: STABLE Disposition: Trans Higher Lvl of Care Fac - Attestation Statements Document Initiated by Scribe: Yes Documenting Scribe: Mao Hernandez Provider For Whom Scribe is Documenting (Include Credential): Enmanuel Brice MD Scribe Attestation: I, Mao Hernandez, scribed for Enmanuel Brice MD on 10/30/18 at 1116. Scribe Documentation Reviewed: Yes Provider Attestation: The documentation as recorded by the camdenibeMao accurately reflects the service I personally performed and the decisions made by Enmanuel daigle MD Status of Scribe Document: Viewed
[2018-10-30 07:25] LABS: ABS Basophils 0.2 10^3/ul (0-0.2); ABS Eosinophils 0.2 10^3/ul (0-0.6); ABS Lymphocytes 2.6 10^3/ul (1.0-4.8); ABS Monocytes 0.9 10^3/ul (0-0.8); ABS Neutrophils 9.5 10^3/ul (1.5-7.7); Eosinophil % 1.4 %; Hematocrit 39 % (35-47); Lymphocyte % 19.7 %; Mean Corpuscular HGB Conc 33 g/dL (31-36); Mean Corpuscular Hemoglobin 27 pg (27-31); Mean Corpuscular Volume 81 fL (80-97); Mean Platelet Volume 6.8 fL (7.4-10.4); Platelet Count 216 10^3/uL (150-450); Red Blood Count 4.81 10^6 /uL (3.70-4.87); Red Cell Distribution Width 14 % (10-15); White Blood Count 13.4 10^3/uL (3.5-10.8)
[2018-10-30 07:43] LABS: ALT 9 U/L (7-52); AST 11 U/L (13-39); Albumin 4.1 g/dL (3.2-5.2); Albumin/Globulin Ratio 1.5 (1-3); Alkaline Phosphatase 133 U/L (34-104); Anion Gap 5 mmol/L (2-11); BUN/Creatinine Ratio 15.6 (8-20); Blood Urea Nitrogen 10 mg/dL (6-24); CO2 Carbon Dioxide 28 mmol/L (22-32); Calcium 8.9 mg/dL (8.6-10.3); Chloride 104 mmol/L (101-111); EGFR African American 135.7 (>60); EGFR Non-African American 112.2 (>60); Globulin 2.7 g/dL (2-4); Glucose 116 mg/dL (70-100); Potassium 3.8 mmol/L (3.5-5.0); Sodium 137 mmol/L (135-145); Total Protein 6.8 g/dL (6.4-8.9)
[2018-10-30 07:51] LABS: HCG Pregnancy < 0.60 mIU/mL
[2018-10-30] MEDS ORDERED: Iohexol 300* (CONTRAST) 10 ML SDV IV ONE (08:31)
[2018-10-30] MEDS ORDERED: Clindamycin 600 MG/D5W BAG(*) 600 MG/50 ML BAG IV ONE (09:00)
[2018-10-30] MEDS ORDERED: Lidocaine 1% MPF ** 5 ML VIAL ONE (10:09)
[2018-10-30] MEDS ORDERED: Lidocaine 2% VISCOUS* 15 ML UDC ONE (10:09)
[2018-10-30] MEDS ORDERED: oxyCODONE/Acetamin 5/325 MG* TAB PO ONE (11:12)
[2018-10-30 13:33] VITALS: BP 112/64
== END 2018-10-30 13:33 | disposition short-term general hospital (02) ==
LOC: ED 06:32
DX: K04.7 Periapical abscess without sinus (principal); F31.9 Bipolar disorder, unspecified; F41.9 Anxiety disorder, unspecified; Z79.899 Other long term (current) drug therapy; Z88.1 Allergy status to other antibiotic agents; Z88.5 Allergy status to narcotic agent; Z88.0 Allergy status to penicillin
CPT/HCPCS: 10060; 36415; 41800; 70487; 80053; 84702; 85025; 99284; A9270-GY; J1885; J2405; Q9967

== ENCOUNTER 2018-11-10 12:53 | Emergency (ER) | payer OTHER ==
[2018-11-10 13:11] VITALS: BP 127/77
--- NOTE | 2018-11-10 13:38 | UC ---
Throat Pain/Nasal Tenzin HPI - HPI Summary HPI Summary: 28-year-old female comes in with a chief complaint of upper respiratory tract infection symptoms for 2 days. Got rhinorrhea which is green. She's been having chills and sweats. She has sore throat. Been using [id number] remedies with minimal relief. - History of Current Complaint Chief Complaint: UCGeneralIllness Stated Complaint: SORE THROAT CONGESTION Time Seen by Provider: 11/10/18 13:27 Hx Last Menstrual Period: [id number] Pain Intensity: 3 - Allergies/Home Medications Allergies/Adverse Reactions: Allergies Allergy/AdvReac Type Severity Reaction Status Date / Time amoxicillin Allergy Hives/Diff. Verified 11/10/18 13:11 Breathing/I tching clarithromycin Allergy Nausea And Verified 11/10/18 13:11 Vomiting codeine Allergy Hives Verified 11/10/18 13:11 Penicillins Allergy Hives/Diff. Verified 11/10/18 13:11 Breathing/I tching Home Medications: Home Medications guaiFENesin [Mucinex] 600 mg PO Q6HR PRN 11/10/18 [History Confirmed 11/10/18] PMH/Surg Hx/FS Hx/Imm Hx Previously Healthy: Yes Other History Of: Negative For: Anticoagulant Therapy - Surgical History Surgical History: None - Family History Known Family History: Positive: Unknown, Other - Positive for bipolar disorder, depression Negative: Hypertension - Social History Alcohol Use: Weekly Substance Use Type: None Smoking Status (MU): Never Smoked Tobacco Type: Cigarettes Have You Smoked in the Last Year: No When Did the Patient Quit Smoking/Using Tobacco: Pt reports she has never been a smoker Household Exposure Type: Cigarettes - Immunization History Most Recent Influenza Vaccination: 2014 Most Recent Tetanus Shot: 01/26 Most Recent Pneumonia Vaccination: unknown Review of Systems All Other Systems Reviewed And Are Negative: Yes Constitutional: Positive: Chills Skin: Positive: Negative Eyes: Positive: Negative ENT: Positive: Sore Throat, Nasal Discharge, Sinus Congestion Respiratory: Positive: Negative Cardiovascular: Positive: Negative Gastrointestinal: Positive: Negative Motor: Positive: Negative Neurovascular: Positive: Negative Musculoskeletal: Positive: Negative Neurological: Positive: Negative Psychological: Positive: Negative Is Patient Immunocompromised?: No Physical Exam Triage Information Reviewed: Yes Appearance: No Pain Distress, Well-Nourished, Ill-Appearing - MILD Vital Signs: Initial Vital Signs Temp 97.7 F 11/10/18 13:07 Pulse 91 11/10/18 13:07 Resp 18 11/10/18 13:07 BP 127/77 11/10/18 13:07 Pulse Ox 100 11/10/18 13:07 Vital Signs Reviewed: Yes Eye Exam: Normal Eyes: Positive: Conjunctiva Clear ENT: Positive: Pharyngeal erythema, Nasal congestion, Nasal drainage, TMs normal Neck: Positive: Supple Respiratory: Positive: Lungs clear, Normal breath sounds, No respiratory distress Cardiovascular: Positive: RRR Musculoskeletal: Positive: Strength Intact, ROM Intact Neurological: Positive: Alert Psychological: Positive: Age Appropriate Behavior Skin Exam: Normal Throat Pain/Nasal Course/Dx - Course Course Of Treatment: DISCUSSED VIRAL VERSES BACTERIAL INFECTIONS AND THE ROLE OF ANTIBIOTICS. THE PATIENT PREFERS TO BE ON ANTIBIOTICS AT THIS TIME. - Differential Dx/Diagnosis Provider Diagnosis: Upper respiratory infection, Pharyngitis Discharge ED - Sign-Out/Discharge Documenting (check all that apply): Patient Departure All imaging exams completed and their final reports reviewed: No Studies - Discharge Plan Condition: Stable Disposition: HOME Prescriptions: Azithromyxin ISACC (NF) [Z-Isacc (Zithromax) 250 mg tabs #6] 2 tab PO .TODAY, THEN 1 DAILY #6 tab Patient Education Materials: Pharyngitis (ED), Upper Respiratory Infection (ED) Forms: *Work Release Referrals: Vidhi Dunlap DO [Primary Care Provider] - Additional Instructions: FOLLOW UP WITH YOUR DOCTOR IF NOT COMPLETELY IMPROVED. GET RECHECKED SOONER IF YOUR CONDITION WORSENS OR ANY QUESTIONS OR CONCERNS. - Billing Disposition and Condition Condition: STABLE Disposition: Home
== END 2018-11-10 13:40 | disposition home or self-care (01) ==
LOC: UCEAST 12:53
DX: J06.9 Acute upper respiratory infection, unspecified (principal); J02.9 Acute pharyngitis, unspecified; Z88.1 Allergy status to other antibiotic agents; Z88.5 Allergy status to narcotic agent; Z88.0 Allergy status to penicillin
CPT/HCPCS: 87651; 99212; G0463

== ENCOUNTER 2019-04-21 13:11 | Emergency (ER) | payer OTHER | END 2019-04-21 13:45 | disposition left against medical advice (07) | LOC: UCEAST 13:11 | DX: Z53.21 Procedure and treatment not carried out due to patient leaving prior to being seen by health care provider (principal) ==

== ENCOUNTER 2020-05-25 21:31 | Inpatient (IN) ==
[2020-05-25 22:12] LABS: Urine Appearance Cloudy; Urine Bilirubin Negative (Negative); Urine Blood Negative (Negative); Urine Color Yellow; Urine Glucose Negative (Negative); Urine Ketones Negative (Negative); Urine Nitrite Negative (Negative); Urine Protein Negative (Negative); Urine Urobilinogen Negative (Negative)
[2020-05-25 22:31] LABS: Urine Benzodiazepine Screen None Detected (None Detect); Urine Cannabinoids Screen Presumptive Positive (None Detect); Urine Opiates Screen None Detected (None Detect)
[2020-05-25 22:41] LABS: ABS Basophils 0.1 10^3/ul (0-0.2); ABS Eosinophils 0.3 10^3/ul (0-0.6); ABS Lymphocytes 3.3 10^3/ul (1.0-4.8); ABS Monocytes 0.8 10^3/ul (0-0.8); ABS Neutrophils 8.8 10^3/ul (1.5-7.7); Hematocrit 37 % (35-47); Hemoglobin 12.4 g/dL (12.0-16.0); Lymphocyte % 24.7 %; Mean Corpuscular HGB Conc 33 g/dL (31-36); Mean Corpuscular Hemoglobin 28 pg (27-31); Mean Corpuscular Volume 83 fL (80-97); Platelet Count 235 10^3/uL (150-450); Red Blood Count 4.51 10^6 /uL (3.70-4.87); Red Cell Distribution Width 15 % (10-15); White Blood Count 13.2 10^3/uL (3.5-10.8)
[2020-05-25 23:00] LABS: ALT 10 U/L (7-52); AST 10 U/L (13-39); Albumin 4.2 g/dL (3.2-5.2); Albumin/Globulin Ratio 1.4 (1-3); Alkaline Phosphatase 101 U/L (34-104); Anion Gap 6 mmol/L (2-11); BUN/Creatinine Ratio 24.2 (8-20); Blood Urea Nitrogen 15 mg/dL (6-24); CO2 Carbon Dioxide 26 mmol/L (22-32); Calcium 9.2 mg/dL (8.6-10.3); Chloride 108 mmol/L (101-111); EGFR African American 138.7 (>60); EGFR Non-African American 114.6 (>60); Globulin 2.9 g/dL (2-4); Glucose 103 mg/dL (70-100); Potassium 3.5 mmol/L (3.5-5.0); Sodium 140 mmol/L (135-145); Total Protein 7.1 g/dL (6.4-8.9)
[2020-05-25 23:07] LABS: HCG Pregnancy 0.76 mIU/mL
[2020-05-25 23:16] LABS: Acetaminophen < 15 mcg/mL; Alcohol, S < 10 mg/dL (<10); Salicylate < 2.50 mg/dL (<30)
[2020-05-25 23:31] LABS: TSH Ultra Thyroid Stim Horm 1.79 mcIU/mL (0.34-5.60)
[2020-05-26] MEDS ORDERED: Al Hydrox/Mg Hydrox/Simet LIQ 30 ML UDC PO PRN (05:33)
[2020-05-26] MEDS: Vitamin THERAPEUTIC TAB PO SCH (08:58)
[2020-05-27 08:18] LABS: HDL Cholesterol 33.3 mg/dL
[2020-05-27] MEDS: Vitamin THERAPEUTIC TAB PO SCH (10:38)
[2020-05-28] MEDS: Vitamin THERAPEUTIC TAB PO SCH (07:54)
[2020-05-28 08:31] VITALS: BP 127/89
== END 2020-05-28 11:43 | disposition home or self-care (01) | DRG 751 ==
LOC: ED 21:31 → BSU 05-26 04:57
PROVIDERS: ADMIT Psychiatry & Neurology Psychiatry; ATTEND Psychiatry & Neurology Psychiatry